=== PATIENT | female | born 1950 | race Caucasian/White ===

== ENCOUNTER 2018-03-18 18:11 | Outpatient (REF) | payer MEDICARE, OTHER, SELFPAY ==
[2018-03-18 20:02] LABS: COMMENT (LAB VIEW ONLY) 99.71 mg/dL; Microalb ug/mg Crea 18.3 ug/mg Cr
== END 2018-03-18 18:31 ==
LOC: NCHCN 18:11
PROVIDERS: PCP Nurse Practitioner; Visit Provider Nurse Practitioner
DX: E11.9 Type 2 diabetes mellitus without complications (principal)
CPT/HCPCS: 82043; 82570

== ENCOUNTER 2018-09-25 12:57 | Outpatient (REF) | payer MEDICARE, OTHER, SELFPAY ==
[2018-09-25 19:22] LABS: ALT 35 U/L (12-78); AST 26 U/L (15-37); Albumin 3.8 g/dL (3.4-5.0); Alkaline Phosphatase 90 U/L (46-116); Anion Gap 10.1 mmol/L (3-11); BUN 14 mg/dL (7-18); Bilirubin, Total 0.3 mg/dL (0.2-1.0); CO2 27.9 mmol/L (21.0-32.0); CREATININE 0.73 mg/dL (0.55-1.02); Calcium 9.2 mg/dL (8.5-10.1); Chloride 102 mmol/L (98-107); Cholesterol 184 mg/dL (50-200); Glucose 167 mg/dL (70-100); HDL Cholesterol 64 mg/dL (40-60); LDL CHOLESTEROL 102 mg/dL (<100); Potassium 3.9 mmol/L (3.5-5.1); Sodium 140 mmol/L (136-145); TSH (W/Ref FT4) 2.12 uIU/mL (0.358-3.74); Total Protein 7.1 g/dL (6.4-8.2); Triglyceride 110 mg/dL (30-150)
== END 2018-09-25 13:17 ==
LOC: NCHCN 12:57
PROVIDERS: PCP Nurse Practitioner; Visit Provider Nurse Practitioner
DX: E11.9 Type 2 diabetes mellitus without complications (principal); E03.9 Hypothyroidism, unspecified; E78.00 Pure hypercholesterolemia, unspecified
CPT/HCPCS: 80053; 80061; 83721; 84443

== ENCOUNTER 2019-06-16 00:43 | Outpatient (CLI) | payer MEDICARE, OTHER, SELFPAY ==
--- NOTE | 2019-06-16 15:20 | DI.MAMMO_ITS ---
EXAM: MAMMO SCREENING CLINICAL HISTORY: SCREENING Z12.39. TECHNIQUE: Full field digital CC and MLO mammographic images were obtained with 3D tomosynthesis and utilizing computer aided detection (CAD). COMPARISON: . 2009 to 2016 FINDINGS: Breast density: Breast Density - Category B - Scattered areas of fibroglandular density Masses/Architectural Distortion: None seen. Microcalcifications: No suspicious pleomorphic-type calcifications are seen. Skin Thickening/Nipple Retraction: None. Axilla: Unremarkable. IMPRESSION: 1. BI-RADS category 1, negative. No significant interval change with no specific features of maligna ncy noted. 2. Unless there is more urgent need, screening mammography is recommended, as per [place] [employer] guidelines. A negative radiographic report should not delay biopsy if a dominant or clinically suspicious mass is present. Up to ten percent of cancers are not identified on mammography. A negative report may reinforce clinical impression. Adenosis and dense breasts may obscure an underlying neoplasm. False positive reports average 6 to 10%. Patient will receive a letter notifying them of these results.
== END 2019-06-16 01:03 ==
PROVIDERS: PCP Nurse Practitioner; Visit Provider Nurse Practitioner
DX: Z12.31 Encounter for screening mammogram for malignant neoplasm of breast (principal)
CPT/HCPCS: 77063; 77067

== ENCOUNTER 2019-09-29 07:52 | Outpatient (REF) | payer MEDICARE, OTHER, SELFPAY ==
[2019-09-29 16:05] LABS: Hemoglobin A1C 7.1 % (3.8-5.6)
[2019-09-29 16:07] LABS: ALT 41 U/L (14-59); AST 23 U/L (15-37); Alkaline Phosphatase 98 U/L (46-116); Anion Gap 7.2 mmol/L (3-11); BUN 16 mg/dL (7-18); Bilirubin, Total 0.4 mg/dL (0.2-1.0); CO2 30.8 mmol/L (21.0-32.0); CREATININE 0.69 mg/dL (0.55-1.02); Calcium 9.1 mg/dL (8.5-10.1); Chloride 103 mmol/L (98-107); Glucose 160 mg/dL (74-106); Potassium 4.1 mmol/L (3.5-5.1); Sodium 141 mmol/L (136-145); TSH (W/Ref FT4) 3.77 uIU/mL (0.36-3.74); Total Protein 7.4 g/dL (6.4-8.2)
[2019-09-29 16:22] LABS: Calculated LDL 108 mg/dL (<100); Cholesterol 193 mg/dL (<200); HDL Cholesterol 66 mg/dL (40-60); Triglyceride 98 mg/dL (<150)
[2019-09-29 16:39] LABS: FREE T4 1.12 ng/dL (0.76-1.46)
== END 2019-09-29 08:12 ==
LOC: NCHCN 07:52
PROVIDERS: PCP Nurse Practitioner; Visit Provider Nurse Practitioner
DX: E78.00 Pure hypercholesterolemia, unspecified (principal); E11.9 Type 2 diabetes mellitus without complications; E03.9 Hypothyroidism, unspecified
CPT/HCPCS: 80053; 80061; 83036; 84439; 84443

== ENCOUNTER 2020-10-11 16:37 | Outpatient (REF) | payer MEDICARE, OTHER, SELFPAY ==
[2020-10-11 19:00] LABS: ALT 43 U/L (14-59); AST 23 U/L (15-37); Albumin 3.8 g/dL (3.4-5.0); Alkaline Phosphatase 133 U/L (46-116); Anion Gap 8.6 mmol/L (3-11); BUN 25 mg/dL (7-18); Bilirubin, Total 0.3 mg/dL (0.2-1.0); CO2 29.4 mmol/L (21.0-32.0); CREATININE 0.9 mg/dL (0.55-1.02); Calcium 8.8 mg/dL (8.5-10.1); Calculated LDL 98 mg/dL (<100); Chloride 106 mmol/L (98-107); Cholesterol 173 mg/dL (<200); Glucose 161 mg/dL (74-106); HDL Cholesterol 52 mg/dL (40-60); Potassium 4.1 mmol/L (3.5-5.1); Sodium 144 mmol/L (136-145); TSH (W/Ref FT4) 3.12 uIU/mL (0.36-3.74); Total Protein 6.9 g/dL (6.4-8.2); Triglyceride 115 mg/dL (<150)
== END 2020-10-11 16:38 | disposition home or self-care (01) ==
LOC: NCHCN 16:37
PROVIDERS: PCP Nurse Practitioner; Visit Provider Nurse Practitioner
DX: E03.9 Hypothyroidism, unspecified (principal); E78.00 Pure hypercholesterolemia, unspecified
CPT/HCPCS: 80053; 80061; 84443

== ENCOUNTER 2020-11-11 12:17 | Outpatient (REF) | payer MEDICARE, OTHER, SELFPAY ==
--- NOTE | 2020-11-11 14:00 | SKI_PTH ---
PATIENT: Susie Hernadez LOC: [facility] U#:[id number] AGE/SX: 70/F ROOM: RE11/11/[address]: Sincere Marks : 1950 BED: DIS: 11/11/2020 SPEC #: [id number] RECD: 11/14/20 12:52 STATUS: JHONNY REQ #: [id number] CLINT: 11/11/20 14:[address]: Sincere Marks DEPT: Surgical Specimen RECD BY: Betty Morillo ENTERED: 11/14/20 12:52 SP TYPE: SHANNAN GONZALEZ DR: Lucila Lee Tissues: 1 - SKIN BIOPSY(SHAVE/PUNCH) Procedures: SKIN LEVEL 4 Comments: [id number]
== END 2020-11-11 12:18 | disposition home or self-care (01) ==
LOC: NCHCN 12:17
PROVIDERS: PCP Nurse Practitioner; Visit Provider Physician Assistant
DX: L30.8 Other specified dermatitis; L81.8 Other specified disorders of pigmentation
CPT/HCPCS: 88305

== ENCOUNTER 2021-05-22 00:46 | Outpatient (CLI) | payer MEDICARE, OTHER, SELFPAY ==
--- NOTE | 2021-05-22 | DI.MAMMO_ITS ---
Exam(s) MAMMO SCREENING EXAM: MAMMO SCREENING CLINICAL HISTORY: SCREENING, Z12.39 TECHNIQUE: Mammograms were interpreted according to the usual protocol including computer analysis w [employer] CAD system, tomosynthesis and C-view imaging. COMPARISON: 2012 through 2019 FINDINGS: The breasts are composed of scattered fibroglandular densities, Breast Density category B. No suspicious masses or suspicious microcalcifications are seen. No skin thickening or abnormal axillary lymph nodes are seen. There has been no significant change from prior exams. IMPRESSION: BI-RADS Category 1, Negative mammogram Yearly screening mammography is recommended. Breast Density - Category B, scattered fibroglandular densities. A negative radiographic report should not delay biopsy if a dominant or clinically suspicious mass is present. Up to ten percent of cancers are not identified on mammography. A negative report may reinforce clinical impression. Adenosis and dense breasts may obscure an underlying neoplasm. False positive reports average 6 to 10%. Patient will receive a letter notifying them of these results.
== END 2021-05-22 01:06 ==
PROVIDERS: PCP Nurse Practitioner; Visit Provider Nurse Practitioner
DX: Z12.31 Encounter for screening mammogram for malignant neoplasm of breast (principal)
CPT/HCPCS: 77063; 77067

== ENCOUNTER 2021-10-09 19:50 | Emergency (ER) | payer MEDICARE, OTHER, SELFPAY ==
[2021-10-09] VITALS (33 sets, daily range): BP systolic 118–162; BP diastolic 62–94; PULSE 54–69; RESP 8–25; TEMP 37–37.1; O2SAT 95–100
--- NOTE | 2021-10-09 20:00 | RT.EKG_ITS ---
APPROVED REPORT Exam: Resting ECG Reason for Exam: vomiting Patient Location: E HR:56 bpm ECG Measurements Heart Rate 56 AXIS HI 156 P 60 QRSd 93 QRS 14 QT 440 T 64 QTc 427 Conclusion Sinus bradycardia...rate< 60 Physician: no stemi, stable, no significant st elevation or depression
--- NOTE | 2021-10-09 20:00 | DI.CT_ITS ---
Exam(s) CT ABDOMEN PELVIS WO EXAM: CT ABDOMEN PELVIS WO INDICATION: vomiting, epigastric discomfort. COMPARISON: No exams were available for comparison TECHNIQUE: FINDINGS: CT examination of the abdomen and pelvis was performed without contrast administration. Images obtained through the lung bases are unremarkable. There is apparent wall thickening and/or edema of the gastric antrum, please correlate regarding poss ible inflammatory process, endoscopy may be considered if clinically indicated. Malignancy not exclu ded on the basis of this examination. The liver is unremarkable in appearance. Gallbladder and bile ducts are CT normal. Pancreas appears normal. Spleen is unremarkable in appearance. Adrenals appear normal. The kidneys are unremarkable with no evidence of hydronephrosis, nephrolithiasis, or renal mass.. Ur inary bladder unremarkable. Abdominal aorta is of normal diameter and no major vascular abnormality is seen. No abdominal wall hernia. No abdominal or pelvic adenopathy. [employer] structures appear intact. Appendix is normal. No evidence of diverticulitis or bowel obstruction. IMPRESSION: Findings of apparent gastric antral wall thickening and/or edema. Findings may represent inflammator y or neoplastic process, correlation with endoscopy suggested if clinically appropriate.. RADIATION DOSE DELIVERED: 482.03mGy.cm Total DLP 482.03mGy.cm Total DLP !Error CTDIvol RADIATION OPTIMIZATION: All CT scans at this facility use at least one of these dose optimization te chniques: automated exposure control; mA and/or kV adjustment per patient size (includes targeted exa ms where dose is matched to clinical indication); or iterative reconstruction.
--- NOTE | 2021-10-09 20:03 | W.ED.GENAD ---
Discharge Plan Disposition Patient Disposition: HOME Condition: Good Discharge Details Clinical Impression: Gastritis, Gastric wall thickening Primary Care Provider: Lucila Lee ED Provider: Roderick Juan Home Meds and New Rx's Prescriptions: New sucralfate [Carafate] 1 gram tablet 1 g PO BID Qty: 60 0RF pantoprazole [Protonix] 40 mg tablet,delayed release (DR/EC) 40 mg PO DAILY Qty: 60 0RF famotidine 40 mg tablet 40 mg PO DAILY Qty: 60 0RF Continued multivitamin Tablet 1 tab PO DAILY atorvastatin 10 mg Tablet 10 mg PO DAILY levothyroxine 25 mcg Tablet 25 mcg PO DAILY loratadine 10 mg Tablet 10 mg PO DAILY PRN Discharge Instructions Instructions: Gastritis (ED) Additional Instructions: At this time your symptoms are consistent with gastritis. This is irritation of your stomach. Please stick with a bland diet of rice, bananas, oatmeal, and avoid any spicy foods, tomato-based foods, citrus foods, or greasy foods. Please stick with a bland diet for the next 4 to 7 days. Please take the antiacid medications that have been given to you. They have been sent to your pharmacy on file. You have been given a small bottle of Zofran, please take this as needed for nausea. As we discussed together there is a small amount of thickening in your stomach which is most likely due to the gastric irritation, but may also be due to to a cancer or tumor. Please follow-up closely with your new primary care provider for discussion and scheduling of an EGD to evaluate that area further. If you notice any worsening of your symptoms, or any new symptoms such as vomiting, diarrhea, fever, chills, shortness of breath, chest pain, numbness, weakness, or fainting , please return immediately to the emergency department for reevaluation. Please follow up with your primary care provider as soon as possible for reassessment and reevaluation. As always, it was a pleasure participating in your medical care today. Referrals: Lucila Lee [Primary Care Provider] - Medical Decision Making This is a very pleasant 71-year-old female with a past medical history of being prediabetic, with no previous abdominal surgeries who presents today for evaluation of vomiting and epigastric pain. Patient states that this morning she began vomiting, she has subsequently vomited 6-7 times. She tried taking some Pepto-Bismol but this did not improve her symptoms at all. She describes the pain as achy and a feeling of unease in the epigastric region. No chest pain, chest tightness, chest heaviness or shortness of breath. She denies any hematemesis or diarrhea. She denies any urinary complaints. She did go to the urgent care earlier and was recommended to come to the ER for further assessment. Patient has no other modifying factors. Physical exam demonstrates dry mucous membranes, mild achiness in the epigastric area, no pain to McBurney's point. Negative Saini sign. No evidence of an acute surgical abdomen. Because of the patient's age, risk factors, prediabetes, I do feel that further evaluation is indicated. We will rehydrate, get a CT scan of the abdomen, evaluate for less likely cardiac etiology, monitor closely and reassess. Will give Protonix, Zofran, and GI cocktail. 10:[address] scan results have returned, there is evidence of thickening of the gastric antrum, she is most likely secondary to gastritis, however with the patient's longstanding history of GERD, further endoscopy is indicated on a nonemergent basis. I discussed this with the patient she will follow-up with her PCP in regards to scheduling this. On reassessment patient feels much better. She has been able to tolerate p.o. She continues to demonstrate a nonsurgical abdomen. Laboratory work-up is unremarkable, no white count bandemia or left shift. Electrolytes are stable, renal function is good. Diagnosis gastric irritation/gastric ulcer. Troponin is normal, EKG is benign. Will recommend PPI and H2 peggy for home use as well as Carafate. We will send prescriptions. Discussed red flags for which to return. I have extensively reviewed the treatment plan and discharge instructions with the patient. I have addressed all patient concerns at this time. The patient was made aware of what symptoms to monitor for that would warrant a return to the emergency department. Discussed the plan with the patient, they demonstrate verbal understanding and agreement with our assessment and plan at this time. The documentation in this chart was dictated using VTM dictation software. Please excuse any dictation errors. FINDINGS: Lungs: Lung bases are clear. Liver: Liver is not enlarged. Unremarkable unenhanced appearance of the liver. Gallbladder and bile ducts: No significant pericholecystic inflammatory stranding. No calcified stones. No ductal dilation. Pancreas: Unremarkable unhanced appearance of the pancreas. No ductal dilation. Spleen: Unremarkable unenhanced appearance of the spleen. No splenomegaly. Adrenal glands: Nonspecific, symmetric mild adrenal thickening without discrete nodule or mass. Kidneys and ureters: No renal calcification. There are symmetric extrarenal pelvises. No rafael hydronephrosis. Ureters are symmetric with essentially normal course and caliber. Stomach and bowel: Proximal stomach mildly distended by ingested material. There is focal circumferential mural thickening of the gastric antrum (series 2, image 29; coronal image 23). Small bowel is normal in course and caliber without focal bowel wall thickening. Ingested oral contrast noted within the colon, no bowel obstruction. No focal colonic mural thickening. There is mild colonic stool burden. Appendix: No evidence of acute appendicitis. Intraperitoneal space: No concerning free fluid in the abdomen or pelvis. No free air Vasculature: There are mild scattered atherosclerotic calcifications of the abdominal aorta and its major branches, no abdominal aortic aneurysm. Abdominal aorta is tortuous in course. Lymph nodes: No pathologically enlarged lymph nodes. Urinary bladder: Unremarkable as visualized. Reproductive: Unremarkable as visualized. Bones/joints: Varying degrees of multilevel degenerative disk and facet changes of the spine are present. No acute fracture. Soft tissues: Asymmetric induration of the soft tissues within the right labia/perineum, incompletely evaluated on this study. IMPRESSION: 1. Focal circumferential mural thickening of the gastric antrum. Correlate with history/symptoms for acute gastritis. As underlying malignancy is not excluded, correlation with endoscopy as clinically indicated. 2. Asymmetric induration of the soft tissues within the right labia/perineum, incompletely evaluated on this study. Correlate with physical exam. 3. Additional nonacute findings as discussed. Thank you for allowing us to participate in the care of your patient. Dictated and Authenticated by: Mino Queen MD 10/09/2021 9:25 PM Eastern Time ([place] & [place]) HPI General Date/Time Provider Initiated Documentation: 10/09/21 19:52. HPI Narrative: This is a very pleasant 71-year-old female with a past medical history of being prediabetic, with no previous abdominal surgeries who presents today for evaluation of vomiting and epigastric pain. Patient states that this morning she began vomiting, she has subsequently vomited 6-7 times. She tried taking some Pepto-Bismol but this did not improve her symptoms at all. She describes the pain as achy and a feeling of unease in the epigastric region. No chest pain, chest tightness, chest heaviness or shortness of breath. She denies any hematemesis or diarrhea. She denies any urinary complaints. She did go to the urgent care earlier and was recommended to come to the ER for further assessment. Patient has no other modifying factors. Related Data Home Medications Medication Instructions Recorded Confirmed atorvastatin 10 mg tablet 10 mg PO DAILY 10/09/21 10/09/21 famotidine 40 mg tablet 40 mg PO DAILY #60 tabs 10/09/21 levothyroxine 25 mcg tablet 25 mcg PO DAILY 10/09/21 10/09/21 loratadine 10 mg tablet 10 mg PO DAILY PRN 10/09/21 10/09/21 multivitamin 1 tab PO DAILY 10/09/21 10/09/21 pantoprazole 40 mg tablet,delayed 40 mg PO DAILY #60 tabs 10/09/21 release (Protonix) sucralfate 1 gram tablet (Carafate) 1 g PO BID #60 tabs 10/09/21 Previous Rx's Medication Instructions Recorded famotidine 40 mg tablet 40 mg PO DAILY #60 tabs 10/09/21 pantoprazole 40 mg tablet,delayed 40 mg PO DAILY #60 tabs 10/09/21 release (Protonix) sucralfate 1 gram tablet (Carafate) 1 g PO BID #60 tabs 10/09/21 Allergies Allergy/AdvReac Type Severity Reaction Status Date / Time No Known Allergies Allergy Unverified 10/09/21 20:04 General Stated Complaint: Nausea/Vomit/Diar KRISTIN: 3 Review of Systems All systems reviewed & are unremarkable except as noted in HPI and below PFSH All Active Problems (Updated 10/09/21 @ 22:08 by Roderick Juan DO) Gastritis (Acute) Gastric wall thickening (Acute) Social History Smoking/Tobacco Use Status: Never Smoking risk assessment performed?: Yes Alcohol Intake: never Drug use: Never Substance use type: does not use Exam Narrative Exam Narrative: 1.Const: Well-nourished, Well-developed, appearing stated age 2.Eyes: PERRL, no conjunctival injection, and symmetrical lids. 3.ENT: Atraumatic external nose and ears. Dry MM. Neck: Symmetric, trachea midline, No thyromegaly. 4.CVS: +S1/S2, No murmurs or gallops. Peripheral pulses 2+ and equal in all extremities. Brisk capillary refill in all extremities. 5.RESP: Unlabored respiratory effort. Clear to auscultation bilaterally. No wheezes rales or rhonchi 6.GI: Soft, nondistended, no guarding or rebound. Mild achiness in the epigastric region on palpation. No pain at McBurney's point. Negative Saini sign. 7.MSK: Normocephalic/Atraumatic, Extremities w/o deformity or ttp No cyanosis or clubbing, Normal movement of all extremities 8.Skin: Warm, Dry. No rashes or lesions. 9.Neuro: stave planer tender II-XII grossly intact. Sensation grossly intact, no focal neurologic deficits. 10.Psych: (AAO) x3. Appropriate mood and affect Course Vital Signs Vital signs: Vital Signs Temperature 37.1 C 10/09/21 19:55 Pulse 56 L 10/09/21 19:55 Respiratory Rate 14 10/09/21 19:55 Blood Pressure 162/81 H 10/09/21 19:55 Pulse Oximetry 100 10/09/21 19:55 Temperature 37.1 C 10/09/21 19:55 Temperature Source Skin 10/09/21 19:55 Pulse 56 L 10/09/21 19:55 Respiratory Rate 14 10/09/21 19:55 Respiratory Effort Non-Labored 10/09/21 19:58 Blood Pressure 162/81 H 10/09/21 19:55 Blood Pressure Position Sitting 10/09/21 19:55 Pulse Oximetry 100 10/09/21 19:55 Oxygen Delivery Method Room Air 10/09/21 19:55 Oxygen Flow Rate 0 10/09/21 19:55
[2021-10-09] MEDS: Famotidine 20 MG/2 ML VIAL IVP (20:09)
[2021-10-09] MEDS: Ondansetron 4 MG/2 ML VIAL IVP (20:09)
[2021-10-09] MEDS: Normal Saline 100 ML 400 ML (20:10)
[2021-10-09] MEDS: Normal Saline 1,000 ML 1000 ML IV (20:11)
[2021-10-09 20:22] LABS: Abs Immature Grans 0.01 10^3/uL (0.0-0.06); Absolute Basophil Count 0.07 10^3/uL (0.0-0.2); Absolute Eosinophil Count 0.96 10^3/uL (0.0-0.7); Absolute Lymphocyte Count 1.94 10^3/uL (1.2-3.4); Absolute Neutrophil Count 4.29 10^3/uL (1.2-6.7); Basophils % 0.9; Eosinophils % 12.2; HGB 13.6 g/dL (11.2-15.7); Immature Grans % 0.1; Lymphocytes % 24.7; MCH 30.4 pg (27.0-33.0); MCV 90 fL (80-95); MPV 9.8 fL (8.0-11.0); Monocytes % 7.6; Neutrophils % 54.5; Platelet Count 276 10^3/uL (130-400); RBC 4.47 10^6/uL (3.93-5.22); RDW 12.4 % (11.7-14.6); RDW-SD 41.1 fL; WBC 7.87 10^3/uL (4.4-10.8)
[2021-10-09 20:34] LABS: ALT 39 U/L (14-59); AST 22 U/L (15-37); Albumin 3.7 g/dL (3.4-5.0); Alkaline Phosphatase 120 U/L (46-116); Anion Gap 9.2 mmol/L (3-11); BUN 19 mg/dL (7-18); Bilirubin, Total 0.3 mg/dL (0.2-1.0); CO2 26.8 mmol/L (21.0-32.0); CREATININE 0.7 mg/dL (0.55-1.02); Calcium 9.2 mg/dL (8.5-10.1); Chloride 104 mmol/L (98-107); Glucose 169 mg/dL (74-106); Lipase 176 U/L (73-393); Potassium 3.8 mmol/L (3.5-5.1); Sodium 140 mmol/L (136-145); Total Protein 7.2 g/dL (6.4-8.2); Troponin I < 50 ng/L (<or=60)
--- NOTE | 2021-10-09 21:25 | DI.VRAD_ITS ---
PROCEDURE INFORMATION: Exam: CT Abdomen And Pelvis Without Contrast Exam date and time: 10/09/2021 8:35 PM Age: 71 years old Clinical indication: Abdominal pain; Patient HX: Vomiting, epigastric discomfort TECHNIQUE: Imaging protocol: Computed tomography of the abdomen and pelvis without contrast. COMPARISON: No relevant prior studies available. FINDINGS: Lungs: Lung bases are clear. Liver: Liver is not enlarged. Unremarkable unenhanced appearance of the liver. Gallbladder and bile ducts: No significant pericholecystic inflammatory stranding. No calcified stones. No ductal dilation. Pancreas: Unremarkable unhanced appearance of the pancreas. No ductal dilation. Spleen: Unremarkable unenhanced appearance of the spleen. No splenomegaly. Adrenal glands: Nonspecific, symmetric mild adrenal thickening without discrete nodule or mass. Kidneys and ureters: No renal calcification. There are symmetric extrarenal pelvises. No rafael hydronephrosis. Ureters are symmetric with essentially normal course and caliber. Stomach and bowel: Proximal stomach mildly distended by ingested material. There is focal circumferential mural thickening of the gastric antrum (series 2, image 29; coronal image 23). Small bowel is normal in course and caliber without focal bowel wall thickening. Ingested oral contrast noted within the colon, no bowel obstruction. No focal colonic mural thickening. There is mild colonic stool burden. Appendix: No evidence of acute appendicitis. Intraperitoneal space: No concerning free fluid in the abdomen or pelvis. No free air. Vasculature: There are mild scattered atherosclerotic calcifications of the abdominal aorta and its major branches, no abdominal aortic aneurysm. Abdominal aorta is tortuous in course. Lymph nodes: No pathologically enlarged lymph nodes. Urinary bladder: Unremarkable as visualized. Reproductive: Unremarkable as visualized. Bones/joints: Varying degrees of multilevel degenerative disk and facet changes of the spine are present. No acute fracture. Soft tissues: Asymmetric induration of the soft tissues within the right labia/perineum, incompletely evaluated on this study. IMPRESSION: 1. Focal circumferential mural thickening of the gastric antrum. Correlate with history/symptoms for acute gastritis. As underlying malignancy is not excluded, correlation with endoscopy as clinically indicated. 2. Asymmetric induration of the soft tissues within the right labia/perineum, incompletely evaluated on this study. Correlate with physical exam. 3. Additional nonacute findings as discussed. Dictated and Authenticated by: Mino Queen MD. Ordering:ELAN Vaughn MD
[2021-10-09 21:44] LABS: Bilirubin Negative (Negative); Blood Trace-intact (Negative); Clarity Sl Cloudy (Clear); Glucose Negative (Negative); Ketones Negative (Negative); Leukocyte Esterase Negative (Negative); Nitrite Negative (Negative); Specific Gravity 1.015 (1.005-1.025); Urobilinogen 0.2 EU/dL (Up TO 0.2)
[2021-10-09 21:53] LABS: Bacteria Negative HPF (Negative); C & S Indicated? No; Crystals Many Amorphous HPF (Negative); Epithelial Cells Negative HPF (Negative); Mucus Negative (Negative); RBC 0-2 HPF (0-2); WBC Negative HPF (0-5)
[2021-10-09] MEDS: Sucralfate 1 GM TAB 2 GM PO (22:21)
[2021-10-09] MEDS: Ondansetron O.D.T. 4 MG TABEF, 3 TABS/BTL PO (22:21)
== END 2021-10-09 22:25 | disposition home or self-care (01) ==
PROVIDERS: Emergency Provider Student in an Organized Health Care Education/Training Program; PCP Nurse Practitioner
DX: K29.00 Acute gastritis without bleeding (principal); R10.13 Epigastric pain; R11.10 Vomiting, unspecified; K31.89 Other diseases of stomach and duodenum
CPT/HCPCS: 80053; 83690; 93005; 96361; 96374; 96375; 99284; 74176; 81003; 81015; 84484; 85025; 93010; J2405

== ENCOUNTER → 2021-10-19 09:24 | Outpatient (BNVA) | payer MEDICARE, OTHER, SELFPAY | PROVIDERS: PCP Nurse Practitioner; Referring Provider Nurse Practitioner; Visit Provider Physical Therapy Assistant | DX: K21.9 Gastro-esophageal reflux disease without esophagitis (principal) | CPT/HCPCS: 99214 ==

== ENCOUNTER 2021-10-26 13:39 | Outpatient (REF) | payer MEDICARE, OTHER, SELFPAY ==
[2021-10-26 15:52] LABS: Microalb ug/mg Crea 15.6 ug/mg Cr
[2021-10-26 19:12] LABS: TSH (W/Ref FT4) 1.34 uIU/mL (0.36-3.74)
== END 2021-10-26 13:40 | disposition home or self-care (01) ==
LOC: NCHCN 13:39
PROVIDERS: PCP Nurse Practitioner; Visit Provider Nurse Practitioner Family
DX: E03.9 Hypothyroidism, unspecified (principal); R10.9 Unspecified abdominal pain; E78.00 Pure hypercholesterolemia, unspecified; E11.9 Type 2 diabetes mellitus without complications; K21.9 Gastro-esophageal reflux disease without esophagitis
CPT/HCPCS: 82043; 82570; 84443

== ENCOUNTER 2021-11-03 01:10 | Outpatient (CLI) | payer MEDICARE, OTHER, SELFPAY ==
[2021-11-03 12:49] LABS: Source Nasal/Nares
[2021-11-03 15:42] LABS: COVID-19 PCR Negative (Negative)
== END 2021-11-03 01:11 | disposition home or self-care (01) ==
LOC: LBO 01:11
PROVIDERS: PCP Nurse Practitioner; Visit Provider Surgery
DX: Z20.822 Contact with and (suspected) exposure to COVID-19 (principal); Z01.818 Encounter for other preprocedural examination
CPT/HCPCS: 87635; U0005

== ENCOUNTER 2021-11-06 06:18 | Day surgery (SDC) | payer MEDICARE, OTHER, SELFPAY ==
[2021-11-06 06:35] VITALS: BP 139/77; PULSE 64; RESP 16; TEMP 36.6; O2SAT 99
--- NOTE | 2021-11-06 06:38 | W.PM.ENDDOP ---
Date of service: 11/06/21 Time of Service: 07:39 Endoscopy Report DATE OF PROCEDURE: 11/06/21 PRE-OP DIAGNOSIS: GERD POST-OP DIAGNOSIS: other (Gastric ulcer, gastritis) PROCEDURE: EGD with biopsies SURGEON: Felecia Ceballos ANESTHESIA TYPE: General:No Airway ESTIMATED BLOOD LOSS: 3 PATHOLOGY: other (Gastric ulcer bx, antrum bx, GE junction bx) COMPLICATIONS: None DISPOSITION: same day INDICATIONS: 71 y/o female with history of GERD presents for further follow up after being seen in the ER on 10/09. CT scan at that time showed gastritis and gastric wall thickening. At that time she was having abdominal pain and nausea. This has since resolved since starting Famotidine, pantoprazole and carfate. However, she continues to have break through heart burn most often at night. When this occurs she also takes pepto bismuth. She denies any changes in bowel habits including bloody or black tarry stools, abdominal pain, diarrhea or constipation. She denies constitutional symptoms. PROCEDURE START TIME: :30 PROCEDURE END TIME: :34 FINDINGS: Large ulcer just proximal to the pylorus. mild gastritis PROCEDURE DESCRIPTION: After informed consent was obtained the patient was take to the procedure room and placed in a supine position. Monitors were applied and a time out was done. The patients name, date of , procedure type, allergies to medications and metal in their body was reviewed. A bite block was placed and the patient was sedated. Once sedated and comfortable the gastroscope was advanced through the oropharynx which was grossly normal into the esophagus. The esophagus was normal. The scope was advanced into the stomach and through the pylorus into the 3rd portion of the duodenum. The duodenum was noted to be normal. The scope was retracted back into the stomach. There was an ulcer just proximal to the pylorus and mild inflammation of the antrum. Biopsies were done of the ulcer and the antrum to rule out H. pylori and malignancy. The scope was retroflexed. The cardia and fundus were noted to be normal. There was no hiatal hernia noted. The scope was retracted back into the esophagus and biopsies were done of the GE junction to rule out Brown's. The Z line was regular. The GE junction was at 35 cm. The scope was removed and the patient was woken up and taken back to [facility] in stable condition. Follow up: 2 weeks
--- NOTE | 2021-11-06 06:41 | W.PM.DSUDISC ---
Discharge Plan Disposition Patient Disposition: HOME Condition: Good Discharge Details Reason For Visit: GERD Attending Provider: Felecia Ceballos Primary Care Provider: Lucila Lee Home Meds and New Rx's Prescriptions: New pantoprazole 40 mg tablet,delayed release (DR/EC) 40 mg PO BID Qty: 60 2RF sucralfate [Carafate] 1 gram tablet 1 g PO QID 30 Days Qty: 120 0RF Rx Instructions: Take 30 minutes before meals and at bedtime Continued Fish Oil 340-1,000 mg capsule 1 cap PO DAILY multivitamin Tablet 1 tab PO DAILY atorvastatin 10 mg Tablet 10 mg PO DAILY levothyroxine 25 mcg Tablet 25 mcg PO DAILY loratadine 10 mg Tablet 10 mg PO DAILY PRN psyllium Packet 1 packet PO QDAY Rx Instructions: mix into at least 8 oz of water or juice before administering Discontinued sucralfate [Carafate] 1 gram tablet 1 g PO BID Qty: 60 0RF pantoprazole [Protonix] 40 mg tablet,delayed release (DR/EC) 40 mg PO DAILY Qty: 60 0RF famotidine 40 mg tablet 40 mg PO DAILY Qty: 60 0RF Discharge Instructions Instructions: Diet for Stomach Ulcers and Gastritis (ED), Gastritis (DC), Peptic Ulcer (DC) Additional Instructions: Findings: inflammation of the stomach and ulcer Follow up: 2 weeks Medications: Please increase Protonix to 2 x a day Please increase Carafate to 4 x a day Stop Famotidine Please call if you develop: fevers >101.5 Nausea or Vomiting Abdominal pain that is not transient Rectal bleeding that is more then a tbsp A hard abdomen and inability to pass gas DAY SURGERY UNIT POST ENDOSCOPY INSTRUCTIONS Instructions for everyone who is given Anesthesia: For your safety, please do the following for the next 24 Hours: a. Do not drive or operate dangerous equipment b. Do not drink alcohol beverages or use any recreational drugs for the first 24 hours or while taking pain medications. The medications in your body may have a reaction that can be dangerous. c. Do not make any important decisions or sign any important papers 1. Generally there are no restrictions on your activity after a day or so has gone by, but you may feel a bit fatigued for a few days. 2. After you arrive home you may have a light meal and return to a normal diet as you can tolerate it without feeling sick to your stomach. 3. After surgery, you may feel pain or discomfort. This should be only transient, but if it persists please contact your doctor. 4. If there are any questions regarding the findings of your procedure, please feel free to contact your doctor. 6. If you are unable to contact your doctor with a problem, contact the hospital at [phone]. 7. Continue all your regular medications unless directed otherwise. I understand the above instructions and have no questions. Signature of Patient or Responsible Adult Escort Date/Time Name of Responsible Adult Escort Signature of Nurse Date/Time Referrals: Felecia Ceballos MD [ [facility] STAFF PHYSICIAN] - 11/21/21 9:30 am Activity:: Activity as Tolerated Diet:: low acid Discharge Orders Discharge Orders: Discharge Order (Routine); Ordered 11/06/21 Ordered By: Felecia Ceballos
[2021-11-06] MEDS: Lactated Ringers 1,000 ML 80 ML IV (06:57)
--- NOTE | 2021-11-06 06:57 | W.ANESPRE ---
General Info Date of Service Date Performed: 11/06/21 Height: 5 ft Weight: 44.8 kg Body Mass Index (BMI): 19.3 Surgical Procedure: Operation Date: 11/06/21 07:35 Proposed Procedure Side Surgeon p Gastroscopy w/Biopsies Felecia Ceballos MD Meds Allergies and Home Medications Allergies Allergy/AdvReac Type Severity Reaction Status Date / Time omeprazole [From Prilosec] Allergy Severe Swelling/Ed Verified 11/06/21 06:29 marielena Home Medication Medication Instructions Recorded atorvastatin 10 mg tablet 10 mg PO DAILY 10/09/21 famotidine 40 mg tablet 40 mg PO DAILY #60 tabs 10/09/21 levothyroxine 25 mcg tablet 25 mcg PO DAILY 10/09/21 loratadine 10 mg tablet 10 mg PO DAILY PRN 10/09/21 multivitamin 1 tab PO DAILY 10/09/21 pantoprazole 40 mg tablet,delayed 40 mg PO DAILY #60 tabs 10/09/21 release (Protonix) sucralfate 1 gram tablet (Carafate) 1 g PO BID #60 tabs 10/09/21 omega-3 fatty acids-fish oil 340 1 cap PO DAILY 10/17/21 mg-1,000 mg capsule (Fish Oil) psyllium 1 packet PO QDAY 11/06/21 Current Visit Medications: Current Medications Generic Name Dose Route Start Last Admin Trade Name Freq PRN Reason Stop Dose Admin Hyoscyamine Sulfate 0.125 mg 11/06/21 06:42 Hyoscyamine 0.125 Mg Sl/Oral/Chew SL DIRECTED PRN Ringer's Solution 1,000 mls @ 80 mls/hr 11/06/21 06:00 IV 12/03/21 23:59 INFUSION [facility] IV Miscellaneous Supplies 1 each 11/06/21 06:00 Iv Access IV 12/03/21 23:59 DIRECTED SONYA Ondansetron HCl 4 mg 11/06/21 06:42 Ondansetron 4 Mg/2 Ml Vial IVP Q4H PRN PRN Nausea / Vomiting Sodium Chloride 0 ml 11/06/21 06:00 Normal Saline Flush 10 Ml Syr IV 12/03/21 23:59 PRN PRN Sodium Chloride 0 ml 11/06/21 06:00 Normal Saline 10 Ml Vial IJ 12/03/21 23:59 DIRECTED PRN Sterile Water 0 ml 11/06/21 06:00 Water,Injection,Sterile 10 Ml Vial IJ 12/03/21 23:59 DIRECTED PRN PFSH Active Problems Active Problems: Problem Status Onset Code Gastritis K29.70 Gastric wall thickening K31.89 Abdominal pain, acute R10.9 GERD (gastroesophageal reflux disease) K21.9 Medical History Medical History Diabetes type 2, controlled diet controlled per pt. Hypercholesterolemia Hypothyroid Morphea Tobacco Smoking/Tobacco Use Status: Never Alcohol Alcohol Intake: never Substance Use Substance use: Never Substance use type: does not use Vital Signs and Lab Results Vital Signs Most Recent Vital Signs in EMR: Most Recent Vital Signs Temp Pulse Resp BP Pulse Ox 36.6 C 64 16 139/77 99 11/06/21 06:35 11/06/21 06:35 11/06/21 06:35 11/06/21 06:35 11/06/21 06:35 Lab Results Blood Type / Crossmatch: No Data to Display Complete Blood Count: White Blood Count 7.87 10^3/uL (4.4-10.8) 10/09/21 20:15 Red Blood Count 4.47 10^6/uL (3.93-5.22) 10/09/21 20:15 Hemoglobin 13.6 g/dL (11.2-15.7) 10/09/21 20:15 Hematocrit 40.0 % (36.0-46.0) 10/09/21 20:15 Platelet Count 276 10^3/uL (130-400) 10/09/21 20:15 Complete Metabolic Panel: Sodium Level 140 mmol/L (136-145) 10/09/21 20:15 Potassium Level 3.8 mmol/L (3.5-5.1) 10/09/21 20:15 Chloride Level 104 mmol/L (98-107) 10/09/21 20:15 Carbon Dioxide Level 26.8 mmol/L (21.0-32.0) 10/09/21 20:15 Blood Urea Nitrogen 19 mg/dL (7-18) H 10/09/21 20:15 Creatinine 0.7 mg/dL (0.55-1.02) 10/09/21 20:15 Estimated GFR/1.73 m2 >= 60.00 (mL/min/1.73m2) 10/09/21 20:15 Calcium Level 9.2 mg/dL (8.5-10.1) 10/09/21 20:15 Albumin 3.7 g/dL (3.4-5.0) 10/09/21 20:15 Glucose Level 169 mg/dL (74-106) H 10/09/21 20:15 Liver Function Panel: Alanine Aminotransferase (ALT/SGPT) 39 U/L (14-59) 10/09/21 20:15 Aspartate Amino Transf (AST/SGOT) 22 U/L (15-37) 10/09/21 20:15 Coagulation Panel: No Data to Display Cardiac Panel: Troponin I < 50 ng/L (<or=60) 10/09/21 Arterial Blood Gas: No Data to Display Venous Blood Gas: No Data to Display Pancreas Panel: Lipase 176 U/L (73-393) 10/09/21 20:15 Thyroid Panel: Thyroid Stimulating Hormone (TSH) 1.34 uIU/mL (0.36-3.74) 10/26/21 13:55 Infectious Disease: Coronavirus (COVID-19)(PCR) Negative (Negative) 11/03/21 08:10 Coronavirus 2019 Source Nasal/Nares 11/03/21 08:10 Blood Cultures: No Data to Display Toxicology Panel: No Data to Display Imaging and Studies Imaging and Studies Study information below may be from another EMR and interpreted by another provider. Please see original notes in EMR for more complete details. EKG Summary: DATE/TIME OF SERVICE: 10/09/212015 : 1950PERFORMING LOCATION: ER APPROVED REPORT Exam: Resting ECG Reason for Exam: vomiting Patient Location: E HR:56 bpm ECG Measurements Heart Rate 56 AXIS MO 156 P 60 QRSd 93 QRS 14 QT 440 T64 QTc 427 Conclusion Sinus bradycardia...rate< 60 Anesthesia Assessment and Plan Anesthesia History Personal History: No History of Anesthesia Complications Family History: No Family History of Anesthesia Complications Exercise Tolerance Exercise Tolerance: Metabolic Equivalents>4 Pertinent Negatives Pertinent Negatives: No Symptoms of GERD, No Major Cardiovascular Symptoms or Complaints and No Major Pulmonary Symptoms or Complaints Cardiac & Pulmonary Exam Cardiac Exam: Normal S1/S2 Heart Sounds Pulmonary Exam: Clear Bilateral Breath Sounds Implantable Cardiac Device Does patient have a Pacemaker or an ICD?: No Airway Exam Known Difficult Airway: No Mallampati Class: 2 Mouth Opening: Normal (> 3cm) Thyromental Distance: Greater than 3 cm Neck Range of Motion: Full ROM Neck Circumference: Normal Teeth Condition: Normal Dentition ASA Classification ASA Score: ASA 2 Emergency Case?: No NPO Status NPO Status: NPO Clears >2 hours, Solids >8 hours Anesthesia Plan Resuscitation Status: Full Code Anesthesia Technique: General Anesthesia Airway Planned: Natural Airway Monitors Used: Standard Monitors
[2021-11-06 06:58] VITALS: BMI 19.3
--- NOTE | 2021-11-06 07:32 | STOM_PTH ---
PATIENT: Susie Hernadez LOC: [facility] U#:[id number] AGE/SX: 71/F ROOM: RE11/06/[address]: Felecia Ceballos MD : 1950 BED: DIS: 11/06/2021 SPEC #: [id number] RECD: 11/06/21 12:02 STATUS: JHONNY REQ #: [id number] CLINT: 11/06/21 07:[address]: Felecia Ceballos DEPT: Surgical Specimen RECD BY: Betty Morillo ENTERED: 11/06/21 12:04 SP TYPE: STOMACH OTHR DR: Lucila Lee Tissues: 1 - STOMACH BIOPSY 2 - STOMACH BIOPSY 3 - ESOPHAGUS BIOPSY Procedures: GROSS AND MICRO LEVEL 4 Comments: [id number]
[2021-11-06 07:47] VITALS: BP 108/72; PULSE 69; RESP 16; TEMP 36.6; O2SAT 99
[2021-11-06 08:15] VITALS: BP 156/80; PULSE 60; RESP 16; TEMP 36.8; O2SAT 99
--- NOTE | 2021-11-06 08:45 | W.ANESPOSTOP ---
Postoperative Evaluation Date, Time and Location Date Performed: 11/06/21 Time Performed: 08:45 Patient Location: Day Surgery Unit Vital Signs Most Recent Imported Vital Signs: Most Recent Vital Signs Temp Pulse Resp BP Pulse Ox 36.8 C 60 16 156/80 H 99 11/06/21 08:15 11/06/21 08:15 11/06/21 08:15 11/06/21 08:15 11/06/21 08:15 Pain Score Most Recent Pain Score: Most Recent Pain Score Pain Level 0 11/06/21 06:35 Assessment Mental Status: Awake (Alert & Oriented to Patient Baseline) Airway and Respiratory Function: Patent airway with normal (patient baseline) respiratory exam Cardiovascular Function: Hemodynamically Stable Hydration Status: Adequately Hydrated Nausea & Vomiting: No Nausea or Vomiting Pain: Pt. Denies Any Pain Peripheral Nerve Block: Patient did not receive a nerve block
== END 2021-11-06 09:15 | disposition home or self-care (01) ==
PROVIDERS: PCP Nurse Practitioner; Visit Provider Surgery
PROC: 0DJ68ZZ Inspection of Stomach, Via Natural or Artificial Opening Endoscopic (ICD-10-PCS; CPT 43235; principal; 2021-11-06 07:30)
DX: K21.9 Gastro-esophageal reflux disease without esophagitis (principal); K25.9 Gastric ulcer, unspecified as acute or chronic, without hemorrhage or perforation; K29.70 Gastritis, unspecified, without bleeding; K31.89 Other diseases of stomach and duodenum; K22.89 Other specified disease of esophagus
CPT/HCPCS: 43239; 88305

== ENCOUNTER → 2021-12-05 12:49 | Outpatient (BNVA) | payer MEDICARE, OTHER, SELFPAY | PROVIDERS: PCP Nurse Practitioner; Referring Provider Nurse Practitioner; Visit Provider Surgery | DX: K21.9 Gastro-esophageal reflux disease without esophagitis (principal) | CPT/HCPCS: 99212; 99213 ==

== ENCOUNTER 2022-04-18 15:04 | Outpatient (REF) | payer MEDICARE, OTHER, SELFPAY ==
[2022-04-18 16:31] LABS: Calculated LDL 105 mg/dL (<100); Cholesterol 189 mg/dL (<200); HDL Cholesterol 60 mg/dL (40-60); TSH 2.73 uIU/mL (0.36-3.74); Triglyceride 123 mg/dL (<150)
[2022-04-18 16:59] LABS: Hemoglobin A1C 7.6 % (<5.7)
== END 2022-04-18 15:05 | disposition home or self-care (01) ==
LOC: NCHCN 15:04
PROVIDERS: PCP Nurse Practitioner; Visit Provider Nurse Practitioner Family
DX: E11.9 Type 2 diabetes mellitus without complications (principal)
CPT/HCPCS: 80061; 83036; 84443

== ENCOUNTER 2022-12-11 13:08 | Outpatient (REF) | payer MEDICARE, OTHER, SELFPAY ==
[2022-12-11 18:14] LABS: Abs Immature Grans 0.01 10^3/uL (0.0-0.06); Absolute Basophil Count 0.06 10^3/uL (0.0-0.2); Absolute Eosinophil Count 1.62 10^3/uL (0.0-0.7); Absolute Lymphocyte Count 2.09 10^3/uL (1.2-3.4); Absolute Monocyte Count 0.43 10^3/uL (0.1-0.8); Absolute Neutrophil Count 3.58 10^3/uL (1.2-6.7); Basophils % 0.8; Eosinophils % 20.8; Immature Grans % 0.1; Lymphocytes % 26.8; MCH 30.6 pg (27.0-33.0); MCHC 33.3 % (32.0-36.0); MCV 92 fL (80-95); MPV 10.1 fL (8.0-11.0); Monocytes % 5.5; Platelet Count 280 10^3/uL (130-400); RBC 4.57 10^6/uL (3.93-5.22); RDW 12.3 % (11.7-14.6); RDW-SD 41.6 fL; WBC 7.79 10^3/uL (4.4-10.8)
[2022-12-11 18:34] LABS: ALT 32 U/L (14-59); AST 19 U/L (15-37); Albumin 3.6 g/dL (3.4-5.0); Alkaline Phosphatase 126 U/L (46-116); Anion Gap 10.3 mmol/L (3-11); BUN 22 mg/dL (7-18); Bilirubin, Total 0.1 mg/dL (0.2-1.0); CO2 25.7 mmol/L (21.0-32.0); CREATININE 0.9 mg/dL (0.55-1.02); Calcium 8.7 mg/dL (8.5-10.1); Chloride 106 mmol/L (98-107); Estimated GFR 67.08 (mL/min/1.73m2); Glucose 211 mg/dL (74-106); Potassium 3.7 mmol/L (3.5-5.1); Sodium 142 mmol/L (136-145); TSH 1.64 uIU/mL (0.36-3.74); Total Protein 7.1 g/dL (6.4-8.2)
== END 2022-12-11 13:09 | disposition home or self-care (01) ==
LOC: NCHCN 13:08
PROVIDERS: PCP Nurse Practitioner; Visit Provider Nurse Practitioner Family
DX: E03.9 Hypothyroidism, unspecified (principal); E11.9 Type 2 diabetes mellitus without complications; R63.0 Anorexia
CPT/HCPCS: 80053; 84443; 85025

== ENCOUNTER → 2023-04-02 00:08 | Outpatient (CLI) | payer MEDICARE, OTHER, SELFPAY ==
--- NOTE | 2023-04-02 | DI.MAMMO_ITS ---
Exam(s) MAMMO SCREENING EXAM: MAMMO SCREENING CLINICAL HISTORY: Z12.39 Screening TECHNIQUE: Mammograms were interpreted according to the usual protocol including computer analysis w [employer] CAD system, tomosynthesis and C-view imaging. COMPARISON: 2016 through 2021 FINDINGS: The breasts are composed of scattered fibroglandular densities, Breast Density category B. No suspicious masses or suspicious microcalcifications are seen. No skin thickening or abnormal axillary lymph nodes are seen. There has been no significant change from prior exams. IMPRESSION: BI-RADS Category 1, Negative mammogram Yearly screening mammography is recommended. Breast Density - Category B, scattered fibroglandular densities. A negative radiographic report should not delay biopsy if a dominant or clinically suspicious mass is present. Up to ten percent of cancers are not identified on mammography. A negative report may reinforce clinical impression. Adenosis and dense breasts may obscure an underlying neoplasm. False positive reports average 6 to 10%. Patient will receive a letter notifying them of these results.
== END ==
PROVIDERS: PCP Nurse Practitioner; Visit Provider Nurse Practitioner Family
DX: Z12.31 Encounter for screening mammogram for malignant neoplasm of breast (principal)
CPT/HCPCS: 77063; 77067

== ENCOUNTER 2023-09-27 13:37 | Outpatient (REF) | payer MEDICARE, OTHER, SELFPAY ==
[2023-09-27 14:46] LABS: Albumin 3.9 g/dL (3.4-5.0); Alkaline Phosphatase 128 U/L (46-116); BUN 21 mg/dL (7-18); CREATININE 0.6 mg/dL (0.55-1.02); Calcium 8.9 mg/dL (8.5-10.1); Chloride 104 mmol/L (98-107); Estimated GFR 94.13 (mL/min/1.73m2); Glucose 127 mg/dL (74-106); Potassium 4.2 mmol/L (3.5-5.1); Sodium 141 mmol/L (136-145); TSH (W/Ref FT4) 2.93 uIU/mL (0.36-3.74); Total Protein 7.6 g/dL (6.4-8.2)
[2023-09-27 16:33] LABS: Bilirubin, Total 0.3 mg/dL (0.2-1.0)
[2023-09-27 16:34] LABS: AST 16 U/L (15-37)
[2023-09-27 16:36] LABS: ALT 36 U/L (14-59)
== END 2023-09-27 13:38 | disposition home or self-care (01) ==
LOC: NCHCN 13:37
PROVIDERS: PCP Nurse Practitioner Family; Visit Provider Nurse Practitioner Family
DX: E11.9 Type 2 diabetes mellitus without complications (principal)
CPT/HCPCS: 80053; 83036; 84443

== ENCOUNTER 2024-05-29 19:03 | Outpatient (REF) | payer MEDICARE, OTHER, SELFPAY ==
--- OUTSIDE RECORDS SUMMARY | 2024-05-29 19:05 | XMS_ITS | Encounter Summary ---
Author Organization [facility] Address [address] [place] [address] Care Team Providers Care Automatic Chief Name Role Phone Jensen Vilchis MD Primary Care Provider [phone] Encounter Details Date Type Department Care Team (Late st Contact Info) Description 11/06/2021 Lab Requisition [facility] Pathology & Laboratory Medicine - [address] [address] Juancarlos Ceballos MD [facility] [place] [place] [address] Encounter for other general examination Social History Tobacco Use Types Packs/Day Years Used Date Smoking Tobacco: Never Assessed Comments Unknown Sex and Gender Information Value Date Recorded Sex Assigned at Not on file Legal Sex Female 18:23 EST Gender Identity Not on file Sexual Orientation Not on file documented as of this encounter Plan of Treatment Not on file documented as of this encounter Procedures Procedure Name Priority Date/Time Associated Diagnosis Comments SURGICAL PATHOLOGY Today 11/06/2021 7: 32 EDT Encounter for other general examination documented in this encounter Results * SURGICAL PATHOLOGY (11/06/2021 7:32 EDT) Note to Patient The following pathology results have been interpreted by your pathologist and may be available to you before your health provider has had the opportunity to review them. Please allow time for your provider to receive these results and explore management options, if applicable. 11/08/2021 16:46 EDT [facility] Final Diagnosis A. STOMACH, ULCER, BIOPSY: - Moderate active erosive gastritis with reactive foveolar hyperplasia. - Mild epithelial inflammatory atypia; negative for dysplasia. - Negative for Helicobacter pylori on H&E stained sections. - Negative for malignancy. - Deeper sections x3 examined. B. STOMACH, ANTRUM, BIOPSY: - Antral mucosa with reactive (chemical) gastropathy. - Negative for Helicobacter pylori on H&E stained sections. C. GASTROESOPHAGEAL JUNCTION, BIOPSY: - Mild active chronic inflammation of squamocolumnar mucosa with reactive changes. - Negative for intestinal metaplasia and dysplasia. - Deeper sections x3 examined. 11/08/2021 16:46 [facility] Attestation By the signature below, the attending physician certifies that they have 1) personally conducted a gross and/or microscopic examination of the described specimen(s), and/or personally interpreted the results of laboratory testing of the described specimen(s), and 2) personally rendered or confirmed the above diagnosis. 11/08/2021 16:46 [facility] at 1646 Clinical History GERD, abnormal CT scan 11/08/2021 16:46 [facility] Gross Description A. Received in formalin labelled with proper patient identification (initials R, A) and gastric ulcer bx is a single fragment of doshi soft tissue (0.2 x 0.2 x 0.2 cm). The specimen is entirely submitted in A1. B. Received in formalin labelled with proper patient identification (initials R, A) and antrum bx is a single fragment of doshi soft tissue (0.4 x 0.3 x 0.2 cm). The specimen is entirely submitted in B1. C. Received in formalin labelled with proper patient identification (initials R, A) and GE junction bx are 2 fragments of doshi soft tissue (each averaging 0.3 x 0.2 x 0.2 cm). The specimen is entirely submitted in C1. ANTONIA LAZO(ASCP) 11/07/2021 7:59 11/08/2021 16:46 [facility] Performing Lab [facility] 16:46 [facility] Scanned Images 11/08/2021 16:46 [facility] Tissue ENTIRE ESOPHAGO-CEDRIC ADEOLA MUCOSAL JUNCTION / Unknown 11/06/2021 7:32 EDT 11/06/2021 18:59 EDT Tissue specimen (specimen) PYLORIC ANTRUM STRUCTURE / Unknown 11/06/2021 7:32 EDT 11/06/2021 18:59 EDT Tissue specimen (specimen) CARDIOESOPHAGEAL JUNCTION STRUCTURE / Unknown 11/06/2021 7:32 EDT 11/06/2021 18:59 EDT us Juancarlos Ceballos MD PATHOLOGY ORDERABLES Fin al Result [facility] [address] [place] [address] documented in this encounter Visit Diagnoses Diagnosis Encounter for other general examination documented in this encounter Care Teams Automatic Chief Relationship Specialty Start Date End Date Jensen Vilchis MD [address] [place] [address] PCP - General 07/07/09 documented as of this encounter
--- OUTSIDE RECORDS SUMMARY | 2024-05-29 19:05 | XMS_ITS | Encounter Summary ---
Author Organization [facility] Address [address] [place] [address] Care Team Providers Care Regrader Name Role Phone Jensen Vilchis MD Primary Care Provider [phone] Encounter Details Date Type Department Care Team (Late st Contact Info) Description 08/06/2001 Results Only [facility] - Maple conversion [address] [place], [place] [address] Ashlee Chadwick, WREATH MACHINE TENDER [address] [facility],[address] [address] Social History Tobacco Use Types Packs/Day Years [...] Procedure Name Priority Date/Time Associated Diagnosis Comments CYTOPATHOLOGY Routine 08/06/2001 0:00 EST documented in this encounter Results * CYTOPATHOLOGY (08/06/2001 0:00 EST) Pathology Report: CYTOPATHOLOGY REPORT Reports generated via electronic interface contain original data; however they are lacking the format of the original report. Caution should be taken when reading/interpreti ng unformatted reports. Name: ? NADEGE BUSTAMANTE ? Accession #: ? [id number] : ? 1950 (Age: 50) ??F ?Collect Date: ? 08/06/2001 Location: ? [facility] ? Receive Date: ? 08/08/2001 Provider: ?ASHLEE CHADWICK WREATH MACHINE TENDER Copy to: ? Specimen/Source: ?Conventional Pap Test, Cervix/Endocervix Last Menstrual Period: ? Hormonal/Contracep tive Status: ? Yes ? SPECIMEN ADEQUACY ? Satisfactory for Evaluation - transformation zone component present - obscuring inflammation GENERAL CATEGORIZATION ? Negative for Intraepithelial Lesion or Malignancy ? Document reviewed and electronically signed by: ? Joanne Allen, [place](ASCP) ? Report Date: ??08/13/2001 11:09 End of Report [facility] 08/06/2001 08/08/2001 us Ashlee Chadwick NP PATHOLOGY ORDERABLES Final R esult Performing Organization Address City/State/[facility] Co de Phone Number [facility] [address] [place] [address] documented in this encounter Visit Diagnoses Not on filedocumented in this encounter Care Teams Regrader Relationship Specialty Start Date End Date Jensen Vilchis MD [address] [place] [address] PCP - General 07/07/09 documented as of this encounter
--- OUTSIDE RECORDS SUMMARY | 2024-05-29 19:05 | XMS_ITS | Encounter Summary ---
Author Organization [facility] Address [address] [place] [address] Care Team Providers Care Mill Hand Plate Mill Name Role Phone Jensen Vilchis MD Primary Care Provider [phone] Encounter Details Date Type Department Care Team (Late st Contact Info) Description 08/10/2002 Results Only [facility] - Maple conversion [address] [place] [address] Jacob Bello, DAVIDE [address] [place] [address] Social History Tobacco Use Types Packs/Day [...] Priority Date/Time Associated Diagnosis Comments CYTOPATHOLOGY Routine 08/10/2002 0:00 EST documented in this encounter Results * CYTOPATHOLOGY (08/10/2002 0:00 EST) Pathology Report: CYTOPATHOLOGY REPORT Reports generated via electronic interface contain original data; however they are lacking the format of the original report. Caution should be taken when reading/interpreti ng unformatted reports. Name: ? NADEGE BUSTAMANTE ? Accession #: ? [id number] : ? 1950 (Age: 51) ??F ?Collect Date: ? 08/10/2002 Location: ? [facility] ? Receive Date: ? 08/12/2002 Provider: ?JACOB BELLO STEREOPLOTTER OPERATOR Copy to: ? Specimen/Source: ?ThinPrep Pap Test, Cervix/Endocervix Last Menstrual Period: ? 2000 Other: ? HPVA - HPV testing requested if ASC-US on the current ThinPrep Pap test. ? SPECIMEN ADEQUACY ? Satisfactory for Evaluation - transformation zone component present GENERAL CATEGORIZATION ? Negative for Intraepithelial Lesion or Malignancy ? Document reviewed and electronically signed by: ? Alexa Posada, SCT(ASCP) ? Report Date: ??08/14/2002 12:35 End of Report [facility] 08/10/2002 08/12/2002 us Jacob Bello STEREOPLOTTER OPERATOR PATHOLOGY ORDERABLES Final R esult [facility] [address] [place] [address] documented in this encounter Visit Diagnoses Not on filedocumented in this encounter Care Teams Mill Hand Plate Mill Relationship Specialty Start Date End Date Jensen Vilchis MD [address] [place] [address] PCP - General 07/07/09 documented as of this encounter
--- OUTSIDE RECORDS SUMMARY | 2024-05-29 19:05 | XMS_ITS | Encounter Summary ---
Author Organization [facility] Address [address] [place] [address] Care Team Providers Care Babbitter Name Role Phone Jensen Vilchis MD Primary Care Provider [phone] Encounter Details Date Type Department Care Team (Late st Contact Info) Description 11/14/2020 Lab Requisition [facility] Pathology & Laboratory Medicine - [facility] [address] [place] [address] Sincere Marks, [facility] [address] [place] [address] Encounter for other general examination [...] Date/Time Associated Diagnosis Comments SURGICAL PATHOLOGY Today 11/11/2020 14 :00 EDT Encounter for other general examination documented in this encounter Results * SURGICAL PATHOLOGY (11/11/2020 14:00 EDT) Final Diagnosis A. SKIN OF LEG, LEFT LOWER, PUNCH BIOPSY: - Subtle dermal sclerosis with associated perivascular and interstitial inflammation. See microscopic and comment. 11/15/2020 14:[address] [facility] Diagnosis Comment The findings are relatively subtle, despite deeper levels. Present are foci with the dermal collagen fibers appear sclerotic and are accompanied by a mild inflammatory infiltrate which includes plasma cells. While not fully developed, some of the findings raise morphea as a consideration. There is no subcutis sampled to evaluate for erythema nodosum. Clinical correlation is essential. Latex Caster slides of this case were reviewed at the intradepartmental consultation conference. 11/15/2020 14:50 [facility] Attestation By the signature below, the attending physician certifies that they have 1) personally conducted a gross and/or microscopic examination of the described specimen(s), and/or personally interpreted the results of laboratory testing of the described specimen(s), and 2) personally rendered or confirmed the above diagnosis. 11/15/2020 14:50 [facility] at 1450 Microscopic Description Sections consist of a punch biopsy of skin. The epidermis shows effacement of the rete ridge pattern. There is variable melanin pigment distribution with the keratinocytes. Within the dermis are areas of sclerosis of the dermal collagen fibers. Within these foci, there is a perivascular and interstitial mixed inflammatory infiltrate of mild density which includes lymphomononuclear cells and plasma cells. Within this region, there is a decrease in periadnexal adipocytes. Deeper levels have been examined. 11/15/2020 14:50 [facility] Clinical History Macular areas of erythema/skin discoloration on lower legs x1-2 years bilateral, mild associated itching; possibly erythema nodosa 11/15/2020 14:50 [facility] Gross Description A. Received in formalin labelled with proper patient identification (initials R, A) and L lower leg is a punch biopsy of doshi scaly skin (0.6 cm in diameter and 0.5 cm in depth). Bisected and entirely submitted in A1. ANTONIA GILBERT(ASCP) 11/14/2020 17:19 11/15/2020 14:50 [facility] Performing Lab [facility] 11/15/2020 14:50 [facility] Scanned Images 11/15/2020 14:50 [facility] Tissue TISSUE SPECIMEN FROM SKIN / Unknown 11/11/2020 14:00 EDT 11/14/2020 17:02 EDT us Sincere Marks RPA PATHOLOGY ORDERABLES Julieta sidney Result [facility] [address] [place] [address] documented in this encounter Visit Diagnoses Diagnosis Encounter for other general examination documented in this encounter Care Teams Babbitter Relationship Specialty Start Date End Date Jensen Vilchis MD [address] [place] [address] PCP - General 07/07/09 documented as of this encounter
--- OUTSIDE RECORDS SUMMARY | 2024-05-29 19:05 | XMS_ITS | Clinical Summary ---
Author Organization [facility] Address [address] [place] [address] Care Team Providers Care Insulation Worker Interior Surface Name Role Phone Jensen Vilchis MD Primary Care Provider [phone] Social History Tobacco Use Types Packs/Day Years Used Date Smoking Tobacco: Never Assessed Comments Unknown Sex and Gender Information Value Date Recorded Sex Assigned at Not on file Legal Sex Female 18:23 EST Gender Identity Not on file Sexual Orientation Not on file Plan of Treatment Health Maintenance Due Date Last Done Comments Hepatitis C Screen 1950 Fall Risk Screening 2013 RSV Immunization ( o r 60+ Years) (1 - 1-dose 75+ series) 10/05/2023 COVID-19 Vaccine (2023- season) 2024 Insurance [facility] MEDIC[facility] [place] Care Teams Insulation Worker Interior Surface Relationship Specialty Start Date End Date Jensen Vilchis MD [address] [place] [address] PCP - General 07/07/09
--- OUTSIDE RECORDS SUMMARY | 2024-05-29 19:05 | XMS_ITS | Encounter Summary ---
Author Organization [facility] Address [address] [place] [address] Care Team Providers Care Petroleum Refinery Operator Name Role Phone Jensen Vilchis MD Primary Care Provider [phone] Encounter Details Date Type Department Care Team (Late st Contact Info) Description 10/23/2004 Results Only [facility] - Maple conversion [address] [place] [address] Chandler Israel MD [address] [place] [address] Social History Tobacco Use Types Packs/Day Years [...] Priority Date/Time Associated Diagnosis Comments SURGICAL PATHOLOGY Routine 10/23/2004 0:00 EDT documented in this encounter Results * SURGICAL PATHOLOGY (10/23/2004 0:00 EDT) Pathology Report: SURGICAL PATHOLOGY REPORT Reports generated via electronic interface contain original data; however they are lacking the format of the original report. Caution should be taken when reading/interpreti ng unformatted reports. Name: ? NADEGE BUSTAMANTE ? Accession #: ? [id number] ? : ? 1950 (Age: 54) ??F ? Collect Date: ? 10/23/2004 ? Location: ? [facility] ? Receive Date: ? 10/23/2004 ? Provider: CHANDLER ISRAEL MD Copy to: VALENTIN CHADWICK BRIM BLOCKER ? Final Pathologic Diagnosis: A. ?Esophagus, 35 cm, biopsy: 1. ?Squamous mucosa with reflux esophagitis. 2. ?Columnar mucosa with mild chronic inflammation. ?- No intestinal metaplasia identified. B. ?Stomach, body, biopsy: 1. ?Fundic type mucosa with mild chronic gastritis. 2. ?No Helicobacter pylori-like organisms identified on H & E stain. Document reviewed and electronically signed by: DINESH CAICEDO MD Report ??Date: 10/25/2004 15:38 By the signature above, the attending physician certifies that he/she has personally conducted a gross and/or microscopic examination of the described specimens and rendered or confirmed the above diagnosis. Specimen(s) Received: A. ?Bx esophagus @ 35 cm B. ?Body of stomach bx Clinical History: ? Acid peptic sx Gross Description: ? Received in Hollande's fixative labelled Redznak and biopsy esophagus at 35 cm are six fragments of tissue which range in size from 0.1 x 0.1 x 0.1 cm to 0.3 x 0.2 x 0.1 cm. ??Submitted as (A1) and (A2). Received in Hollande's fixative labelled Redznak and biopsy body of stomach are three fragments of tissue which measure 0.2 x 0.2 x 0.1 cm to 0.4 x 0.2 x 0.1 cm. ??Submitted as (B). ??(Benjamin Tran)/tmg End of Report [facility] 10/23/2004 10/23/2004 15: 26 EDT us Chandler Israel MD PATHOLOGY ORDERABLES Final Result Performing Organization Address City/State/[facility] Co de Phone Number [facility] [address] [place] [address] documented in this encounter Visit Diagnoses Not on filedocumented in this encounter Care Teams Petroleum Refinery Operator Relationship Specialty Start Date End Date Jensen Vilchis MD [address] [place] [id number] PCP - General 07/07/09 documented as of this encounter
--- OUTSIDE RECORDS SUMMARY | 2024-05-29 19:05 | XMS_ITS | Continuity of Care Document ---
Author Organization [facility] Address [address] [place] [address] Assessment No assessment recorded. Plan of Treatment Reminders Order Date Submit Date Provider Last Modified By Organization Details Last Modified Time Details Appointments Follow Up 2024 01:00P Elvira STEPHANIE ALLEN Not available Not available Not available Pre - Op 40 2024 01:30P Elvira ALLEN Not available Not available Not available Follow Up 30 2024 01:00P Elvira ALLEN Not available Not available Not available Lab None recorded . Referral None recorded . Procedures None recorded . Surgeries None recorded . Imaging None recorded . Medication Orders None recorded . Patient TargetsNo targets recorded. Patient InstructionsNo instructions recorded. Reason for Referral None Reported. Results Created Date Observation Date Name Description Value Unit Range Abnormal Flag Note LastModifiedBy Organization Detail LastModifiedTime 02/03/20 24 10/09/2021 imagi ng/di agnos tic resul t No observ ation record ed. Not Available 02/02 06:38:49 02/03/20 24 05/24/2021 DEXA No observ ation record ed. Not Available 02/02 06:39:41 02/03/20 24 10/09/2021 imagi ng/di agnos tic resul t No observ ation record ed. Not Available 02/02 06:40:14 02/03/20 24 10/10/2021 imagi ng/di agnos tic resul t No observ ation record ed. Not Available 02/02 06:40:32 02/03/20 24 04/02/2023 MAMMO , scree luis No observ ation record ed. Not Available 02/02 06:40:35 02/03/20 24 05/22/2021 enrique SOTO No observ ation record ed. Not Available 02/02 06:40:36 02/03/20 24 06/17/2019 enrique SOTO No observ ation record ed. Not Available 02/02 06:40:38 Result Notes None recorded. Problems Name Problem SNOMED Code Status Onset Date Resolution Date Notes Provider Name and Address Organization Details Recorded Time Change in skin lesion 914516799 Active 2024 ALBERT GRANGER [address], [place], [address] , [facility] 5 13:35:57 Ganglion cyst 792327358 Active 2017 [facility] 4 20:43:49 Disorder of skin and/or subcutan eous tissue 29564250 Completed 202011/12/2020 11/12/19 21 - Comments only - Sincere Marks RPA - Lower legs bilatera lly. With prior consent we proceede d with a 6 mm punch biopsy of a characte ristic lesion on her left lower extremit y. Betadine was used to clean the area prior. No touch techniqu e used. A single 5-0 suture was placed followin g the biopsy. Postproc edural instruct ions provided . Return in 1 week for suture removal. Follow-u p by phone with results of patholog y. 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 Priority at this time, continue to follow-u p with general surgery for tentativ e scope schedule d in 2 weeks. GERD symptoms have improved with pantopra zole and Carafate use. Current medicati ons refilled . 6-month follow-u p. Influenz a and fourth COVID shot this fall. Cologoliverio tran ordered continue s to decline colonosc opy carlottain g. See instruct ions below. Problem Code: Z71.89; Problem Code Type: ICD-10; Not Available [facility] 3 04:32:54 Counseli bri Completed 202101/24/2022 01/24/20 22 - Comments only - Stephanie Allen HOT BOX OPERATOR - Rozina stapleton on my panel as of today Problem Code: Z71.89; Problem Code Type: ICD-10; Not Available [facility] 3 04:32:54 Cough 31528153 Completed 202103/22/2023 Problem Code: R05.8; Problem Code Type: ICD-10; Not Available [facility] 4 05:34:25 Eczema 81929695 Active 2021 [facility] 4 20:43:44 Atopic dermatit is 51676796 Active 2022 [facility] 4 20:43:40 Loss of appetite 95317595 Completed 202209/27/2023 ALBERT GRANGER [address], [place], [address] , [facility] 4 09:57:44 Impacted cerumen in left ear [id number] 11686 Completed 202201/17/[address], [place], [address] , [facility] 4 12:26:59 Gastroes ophageal reflux disease without esophagi tis 201551668 Active 2004 Darrencamila Oak[facility] 4 20:43:53 Hypothyr oidism 91557506 Active 2010 [facility] 4 20:43:57 Pure hypercho lesterol emia 733560765 Active 2004 [facility] 4 20:44:15 Type 2 diabetes mellitus without complica tion 986297381 Active 2014 [facility] 4 20:44:23 Abdomina l pain 08721713 Completed 202112/08/2021 Problem Code: R10.9; Problem Code Type: ICD-10; Not Available [facility] 3 04:32:56 Blood glucose outside referenc e range 729604658 Completed 201402/13/2023 Problem Code: R73.09; Problem Code Type: ICD-10; Not Available [facility] 3 04:32:56 Screenin g for malignan t neoplasm of breast Completed 201601/17/2024 [address] GRANGER [address] [place] [address] , [place], [address] [facility] 4 12:39:43 Gastroes ophageal reflux disease 702128884 Completed 200402/13/2023 Not Available [facility] 3 04:32:57 Allergy Completed 200505/21/2021 Problem Code: 995.3; Problem Code Type: ICD-9; Not Available [facility] 3 04:32:57 Blood glucose outside referenc e range 901719702 Completed 200611/16/2015 Problem Code: R73.09; Problem Code Type: ICD-10; Not Available [facility] 3 04:32:58 Glucose level outside referenc e range 836912371 Completed 200602/13/2023 Problem Code: 790.29; Problem Code Type: ICD-9; Not Available [facility] 3 04:32:58 Pain in left lower limb 813157423 Completed 201905/21/2021 Problem Code: M79.605; Problem Code Type: ICD-10; Not Available [facility] 3 04:32:59 Repeat prescrip tion monitori ng Completed 202112/08/2021 Problem Code: Z76.0; Problem Code Type: ICD-10; Not Available [facility] 3 04:32:59 Acute pharyngi tis 824285897 Completed 202112/08/2021 Problem Code: J02.9; Problem Code Type: ICD-10; Not Available [facility] 3 04:33:00 Pain of right shoulder joint 95305962487 419960 Completed 201605/21/2021 Problem Code: M25.511; Problem Code Type: ICD-10; Not Available [facility] 3 04:33:00 COVID-19 952954708 Completed 202101/23/2022 Problem Code: U07.1; Problem Code Type: ICD-10; Not Available [facility] 3 04:33:00 Pain 01115790 Completed 202102/13/2023 Problem Code: R52; Problem Code Type: ICD-10; Not Available [facility] 3 04:33:00 Screenin g for malignan t neoplasm of colon Completed 201604/23/2017 Problem Code: Z12.11; Problem Code Type: ICD-10; Not Available [facility] 3 04:33:01 Neck pain 52372265 Active 2023 ALBERT GRANGER [address], [place], [address] , [facility] 4 12:39:55 Problem Notes None recorded. Procedures Surgical History Date Name Laterality Status Provider Name and Address Organization Details Recorded Time 3 Most Recent Mammogram completed ROJAS AARON RN [facility] 01/17/2024 10:37:23 5 Date of Last Colonoscopy completed ROJAS AARON RN [facility] 01/17/2024 10:36:54 Imaging Results None recorded. Procedure Notes None recorded. Medical Equipment None Reported. Allergies Allergen ID Allergen Name Allergen Category Reaction Reaction Severity Criticality Documentation Date Start Date Code Code System Note Provider Name and Address Organization Details Recorded Time 42361 Prevacid medicatio n rash mild Not available 03/29/20232005 43360 RxNorm ROJAS AARON RN [facility] 4 09:29:35 87856 soy environme nt,food,m edication rash severe Not available 09/18/20232007 Darrencamila Oak[facility] 4 20:44:[address] [facility] [facility] Not available Not available Not available 09/18/20232007 Darrencamila Oakley [facility] 4 20:45:[address] [facility] Not available Not available Not available 09/18/20232007 Darren Oakley [facility] 4 20:45:20 Medications Name Sig Start Date Stop Date Status Note LastModified by Organization Details LastModified Time metformin 500 mg tablet Take 1 tab by mouth daily 03/18 completed Not Available Not Available Not Available triamcino lone acetonide 0.5 % topical cream APPLY A SMALL AMOUNT TO ITCHING ECZEMA SPOTS UP TO TWO TIMES A DAY; DO NOT USE ON FACE. USE SPARINGL Y 09/26 completed Not Available Not Available Not Available cetirizin e 10 mg tablet TAKE ONE TABLET BY MOUTH EVERY DAY FOR DRY COUGH ALLERGY SYMPTOM 05/29 completed Not Available Not Available Not Available atorvasta tin 10 mg tablet TAKE ONE TABLET BY MOUTH EVERY EVENING active Not Available Not Available No t Available ranitidin e 300 mg tablet 1TAB q pm 08/27 completed Not Available Not Available Not Available sucralfat e 1 gram tablet Take 1 tablet by mouth twice a day at night 01/23 completed Not Available Not Available Not Available FreeStyle Lancets 28 gauge USE ONCE DAILY active Not Available Not Available No t Available famotidin e 40 mg tablet Take 1 tablet by mouth once a day 01/23 completed Not Available Not Available Not Available tramadol 50 mg tablet 1 TAB three times daily 09/01 completed Not Available Not Available Not Available triamcino lone acetonide 0.1 % topical cream APPLY TO AFFECTED AREA(S) TWO TIMES A DAY NEEDED FOR ECZEMA SPOT FLARE UPS active Not Available Not Available No t Available pantopraz ole 20 mg tablet,de layed release 2024 active pt stopped taking; started using super enzymes suppleme nt OTC and digestiv e issues resolved Not Available Not Available Not Available levothyro xine 75 mcg tablet TAKE ONE TABLET BY MOUTH EVERY DAY active Not Available Not Available No t Available lancets 1 prn, and as directed 05/22 completed Not Available Not Available Not Available levothyro xine 50 mcg tablet 1 TAB daily 09/12 completed Not Available Not Available Not Available cephalexi n 500 mg capsule TAKE ONE CAPSULE BY MOUTH THREE TIMES A DAY 09/26 completed Not Available Not Available Not Available pantopraz ole 40 mg tablet,de layed release TAKE ONE TABLET BY MOUTH EVERY DAY 01/16 completed dose decrease d to 20mg Not Available Not Available Not Available Elimite 5 % topical cream 1TAB as directed 10/28 completed Not Available Not Available Not Available loratadin e 10 mg tablet TAKE 1 TABLET BY MOUTH DAILY 01/23 completed Not Available Not Available Not Available Restasis 0.05 % eye drops in a dropperet te as needed active Not Available Not Available No t Available Fish Oil 1,000 mg capsule 2015 active otc Not Available Not Available Not Avai lable Albuterol Sulfate HFA 90 mcg/Actua tion aerosol inhaler 2 PUFFS .qid wheezing /SOB 03/02 completed Not Available Not Available Not Available amino acids 1 capsule once a day 01/16 completed Not Available Not Available Not Available calcium Take 3 tablets by mouth once a day 2018 active pt unsure of dosage, says it is more than 600 Not Available Not Available Not Available Fish Oil 340 mg-1,000 mg capsule 05/29 completed otc Not Available Not Available Not Available FreeStyle Lite Strips USE TO TEST BLOOD SUGAR ONCE DAILY active Not Available Not Available No t Available Invokana 100 mg tablet Take 0.5 tablets every day by oral route in the morning. 01/22 completed Not Available Not Available Not Available Farxiga 5 mg tablet Take 1 tablet by mouth once a day 02/03 completed Not Available Not Available Not Available Jardiance 10 mg tablet Take one tablet by mouth every day for Type II Diabetes active Not Available Not Available No t Available Multivita min Women 50 Plus 2 gummies daily active Not Available Not Available No t Available Glucosami ne Chondroit in 1TAB twice daily 03/23 completed Not Available Not Available Not Available Paxlovid 300 mg (150 mg x 2)-100 mg tablets in a dose pack Take 3 tablet by mouth twice a day for 5 days 01/23 completed Not Available Not Available Not Available Vitals None Recorded Social History Question Answer Notes LastModified by Organizat ion Details LastModified Time Tobacco Smoking Status Never Smoker ROJAS AARON RN [facility], [facility] 09/27/2023 09:30:48 What Was The Date Of Your Most Recent Tobacco Screening? 05/29/2024 Information not available 05/29/2024 Has Tobacco Cessation Counseling Been Provided? No Information not available 01/17/2024 Do You Or Have You Ever Used Any Other Forms Of Tobacco Or Nicotine? No Information not available 09/27/2023 Sex: Female Functional Status None recorded. Mental Status None recorded. Family History Relationship Description Onset Age of this Age Resolved Age Notes LastModified by Organization Details LastModified Time Mother Family history of Hypercholest erolemia isaac Not available 2022 04:00:46 Mother Family history of Hypertension [email or web address] Not available 02/2023 04:00:46 Notes:*Problem: Mother: Hype rlipidemia, HPTN Father: Brothers: Diabetes mellitus Children: Juan Hernadez ( 02/28/89). Family History of: Asthma: yes - son Hypertension: yes Hyperlipidemia: yes Coronary heart disease: yes - heart attacks in uncles Diabetes mellitus: yes Medical History No medical history recorded. Gynecological History Statement/Question Response Date of Last Colonoscopy 10/23/2004 Most Recent Mammogram 04/02/2023 Obstetrics History GPAL:G 0 P 0 0 0 0 Immunizations Vaccine Type Date Status Note Provider Nam e and Address Organization Details Recorded Time Tdap 2 completed Not Available [facility] 03/29/2023 05:06:23 Tdap 6 completed Not Available [facility] 03/29/2023 05:06:23 zoster live 2 completed Not Available [facility] 03/29/2023 05:06:23 zoster live 9 completed Not Available [facility] 03/29/2023 05:06:24 Pneumococcal conjugate PCV 13 6 completed Not Available [facility] 03/29/2023 05:06:24 Influenza, high-dose, trivalent, PF 8 completed Not Available [facility] 03/29/2023 05:06:24 Influenza, high-dose, trivalent, PF 7 completed Not Available [facility] 03/29/2023 05:06:24 Td(adult) unspecified formulation 4 completed Not Available [facility] 03/29/2023 05:06:25 Influenza, split virus, trivalent, preservative 6 completed Not Available [facility] 03/29/2023 05:06:25 Influenza, split virus, trivalent, preservative 5 completed Not Available [facility] 03/29/2023 05:06:25 Influenza, high-dose, quadrivalent, PF 2 completed Not Available [facility] 03/29/2023 05:06:27 Influenza, high-dose, quadrivalent, PF 0 completed Not Available [facility] 03/29/2023 05:06:27 Influenza, high-dose, quadrivalent, PF 1 completed Not Available [facility] 03/29/2023 05:06:27 COVID-19, mRNA, LNP-S, PF, 100 mcg/0.5mL dose or 50 mcg/0.25mL dose 1 completed Not Available [facility] 03/29/2023 05:06:28 COVID-19, mRNA, LNP-S, PF, 100 mcg/0.5mL dose or 50 mcg/0.25mL dose 1 completed Not Available [facility] 03/29/2023 05:06:28 SARS-COV-2 (COVID-19) vaccine, UNSPECIFIED 1 completed Not Available [facility] 03/29/2023 05:06:28 COVID-19, mRNA, LNP-S, bivalent, PF, 30 mcg/0.3 mL dose 2 completed Not Available [facility] 03/29/2023 05:06:29 pneumococcal polysaccharide PPV23 0 completed Not Available [facility] 03/29/2023 05:06:29 pneumococcal polysaccharide PPV23 4 completed Not Available [facility] 03/29/2023 05:06:30 influenza, unspecified formulation 1 completed Not Available [facility] 03/29/2023 05:06:31 Influenza, high-dose, trivalent, PF 4 completed RAYSA Salas [facility] 02/27/2024 13:21:46 COVID-19, mRNA, LNP-S, PF, barbra-sucrose, 30 mcg/0.3 mL 4 completed RAYSA Salas [facility] 02/27/2024 13:21:46 Influenza, high-dose, quadrivalent, PF 3 completed Not Available [facility] 05/31/2023 05:31:40 Past Encounters Encounter ID Performer Location Encounter Start Date Encounter Closed Date Diagnosis/Indication Diagnosis SNOMED-CT Code Diagnosis ICD10 Code Diagnosis Note [id number] Treva Archer [place] [facility] [place] [address] 02/27/2024 13:04:00 02/27/2024 13:16:54 Active or passive immunization [id number] Z23 Health Concerns Section Related Observation LastModified by Organization Detai ls LastModified Time None Recorded Concern Status LastModified by Organization Details LastModified Time None Recorded Payers Encounter Date Sequence Insurance Name Policy Number Policy Schmidt Covered Member ID Schmidt Member ID Guarantor Name 02/27/2024 2 FOR LIFE () Susie Hernadez [id number] Susie Hernadez 02/27/2024 1 MEDICARE [place] [employer] Sandi Hernadez [id number] Susie Hernadez OBGyn Episode No OBEpisode recorded.
--- OUTSIDE RECORDS SUMMARY | 2024-05-29 19:05 | XMS_ITS | Referral Summary ---
Author Organization [facility] Address [address] [place] [address] Care Team Providers Care Antitank Assault Gunner Name Role Phone Jensen Vilchis MD Primary Care Provider [phone] Social History Tobacco Use Types Packs/Day Years Used Date Smoking Tobacco: Never Assessed Comments Unknown Sex and Gender Information Value Date Recorded Sex Assigned at Not on file Legal Sex Female 18:23 EST Gender Identity Not on file Sexual Orientation Not on file Plan of Treatment [place] [id number] Care Teams Antitank Assault Gunner Relationship Specialty Start Date End Date Jensen Vilchis MD [address] [place] [address] PCP - General 07/07/09
--- OUTSIDE RECORDS SUMMARY | 2024-05-29 19:05 | XMS_ITS | Encounter Summary ---
Author Organization [facility] Address [address] [place] [address] Care Team Providers Care C Iron Worker Name Role Phone Jensen Vilchis MD Primary Care Provider [phone] Encounter Details Date Type Department Care Team (Late st Contact Info) Description 05/15/2006 Results Only [facility] - Maple conversion [address] [place] [address] Ashlee Chadwick, DEFENSIVE LINE COACH [address] [facility],[address] [address] Social History Tobacco Use Types [...] Priority Date/Time Associated Diagnosis Comments CYTOPATHOLOGY Routine 05/15/2006 0:00 EST documented in this encounter Results * CYTOPATHOLOGY (05/15/2006 0:00 EST) Pathology Report: CYTOPATHOLOGY REPORT Reports generated via electronic interface contain original data; however they are lacking the format of the original report. Caution should be taken when reading/interpreti ng unformatted reports. Name: ? NADEGE BUSTAMANTE ? Accession #: ? [id number] : ? 1950 (Age: 55) ??F ?Collect Date: ? 05/15/2006 Location: ? [facility] ? Receive Date: ? 05/17/2006 Provider: ?ASHLEE CHADWICK DEFENSIVE LINE COACH Copy to: ? Specimen/Source: ?ThinPrep Pap Test, Cervix/Endocervix, processed on BERD ThinPrep Imaging System, with manual evaluation Last Menstrual Period: ? Menstrual/Pregnanc y Status: ? Post Menopausal: 2000 Other: ? HPVA - HPV testing requested if ASC-US on the current ThinPrep Pap test. ? SPECIMEN ADEQUACY ? Satisfactory for Evaluation - assessment of transformation zone component not applicable ( e.g. atrophy, vaginal sample, hysterectomy) GENERAL CATEGORIZATION ? Negative for Intraepithelial Lesion or Malignancy ? Document reviewed and electronically signed by: ? Alexa Posada, SCT(ASCP) ? Report Date: ??05/23/2006 13:01 End of Report [facility] 05/15/2006 05/17/2006 us Ashlee Chadwick NP PATHOLOGY ORDERABLES Final R esult [facility] [address] [place] [address] documented in this encounter Visit Diagnoses Not on filedocumented in this encounter Care Teams C Iron Worker Relationship Specialty Start Date End Date Jensen Vilchis MD [address] [place] [id number] PCP - General 07/07/09 documented as of this encounter
--- OUTSIDE RECORDS SUMMARY | 2024-05-29 19:05 | XMS_ITS | Encounter Summary ---
Author Organization [facility] Address [address] [place] [id number] Care Team Providers Care Human Resource Management Instructor Name Role Phone Jensen Vilchis MD Primary Care Provider Encounter Details Date Type Department Care Team (Late st Contact Info) Description 07/25/2010 Results Only [facility] Services - [facility] ([facility]) [address], [place] [id number] Ashlee Arredondo NP [address] [facility],[address] [phone] Social History Tobacco Use Types [...] Priority Date/Time Associated Diagnosis Comments CYTOPATHOLOGY Routine 07/25/2010 0:00 EST documented in this encounter Results * CYTOPATHOLOGY (07/25/2010 0:00 EST) Pathology Report: CYTOPATHOLOGY REPORT ? Reports generated via electronic interface contain original data; ? however they are lacking the format of the original report. ? Caution should be taken when reading/interpreti ng unformatted reports. ? Name: ? NADEGE BUSTAMANTE ? Accession #: ? [id number] ? : ? 1950 (Age: 59) ??F ?Collect Date: ? 07/25/2010 ? Location: ? [facility] ? Receive Date: ? 07/27/2010 ? Provider: ASHLEE W BESCH HAND PACKAGER ? Copy to: ? Final Report ? SPECIMEN ADEQUACY ? Satisfactory for Evaluation ? - assessment of transformation zone component not applicable ( e.g. atrophy, ? vaginal sample, hysterectomy) ? GENERAL CATEGORIZATION ? Negative for Intraepithelial Lesion or Malignancy ? Menstural/Pregnanc y Status: ??Post Menopausal ? Specimen/Source: ??Pap Test, Cervix/Endocervix, ThinPrep Imaging System with ? manual evaluation ? Document reviewed and electronically signed by: ? Kimberly Leong CT(ASCP) ? Report ??Date: 07/28/2010 13:06 ? HPV with Pap Test ? Date Ordered: ? 07/28/2010 ? Status: ?? Signed Out ?Date Complete: ? 08/02/2010 ? By: ??System Interface ? Date Reported: ? 08/02/2010 ? Interpretation ? RESULT: Negative for HPV types 16, 18, 31, 33, 35, 39, 45, 51, 52, ? 56, 58, 59, and 68. ? Comments ? Document reviewed and electronically signed by: ? System Interface ? Report date: 08/02/2010 ? By the signature above, the attending physician certifies that he/she has ? personally conducted a gross and/or microscopic examination of the described ? specimens and rendered or confirmed the above diagnosis. ? End of Report ? [facility] 07/25/2010 07/27/2010 us Ashlee Arredondo HAND PACKAGER PATHOLOGY ORDERABLES Final R esult [facility] [address] [place] [address] documented in this encounter Visit Diagnoses Not on filedocumented in this encounter Care Teams Human Resource Management Instructor Relationship Specialty Start Date End Date Jensen Vilchis MD [address] [place] [phone] PCP - General 07/07/09 documented as of this encounter
--- OUTSIDE RECORDS SUMMARY | 2024-05-29 19:05 | XMS_ITS | Data Portability ---
Author Organization [facility] Address [address] [place] [address] Assessment No assessment recorded. Plan of Treatment Reminders Order Date Submit Date Provider Last Modified By Organization Details Last Modified Time Details Appointments Follow Up 2024 01:00P Elvira ALLEN Not available Not available Not available Pre - Op 40 2024 01:30P Elvira ALLEN Not available Not available Not available Follow Up 30 2024 01:00P Elvira ALLEN Not available Not available Not available Lab CMP, serum or plasma - 1 PST, 1 LAV obtained without issue from (R) 2023 024 [facility] (Registration ), [address] [place] [address] [place], [address], 09/27/2023 14:49:44 HbA1c (hemoglob in A1c), blood - 1 PST, 1 LAV obtained without issue from (R) [email or web address] [facility] (Registration ), [address] [place] [address] [place] [facility] [place], [address], 2023 14:08:58 TSH, serum, reflex free T4 - 1 PST, 1 LAV obtained without issue from (R) 2023 024 [facility] (Registration ), [address] [place] [address] [place], [address], 09/27/2023 16:54:50 hemoglobi n A1C, fingersti ck 2023 024 [facility], [address], [place], [address], 01/17/2024 15:25:30 Referral None recorded. Procedures None recorded. Surgeries None recorded. Imaging None recorded. Medication Orders atorvasta tin 10 mg tablet 2023 024 [email or web address] [facility], [address] [place], [address], 09/27/2023 11:56:39 Invokana 100 mg tablet 2023 024 [facility], [address] [place] [address], [address], [address], 01/23/2024 15:57:30 pantopraz ole 20 mg tablet,de layed release [email or web address], [address] [place] [address], [address], [address], 05/29/2024 13:44:27 triamcino lone acetonide 0.1 % topical cream 2023 024 [facility], [address] [place], [address], 01/17/2024 15:25:30 levothyro xine 75 mcg tablet 2023 024 [email or web address] [facility], [address] [place] [address], [facility], [place], [address], 01/17/2024 15:25:30 Patient TargetsNo targets recorded. Patient Instructions Encounter Date Encounter Id Patient Instructions Last Modified By Organization Details Last Modified Time 09/27/2023 [id number] Nice to see you today Susie! You are doing great with staying healthy and active talked about trying topical rubs for your neck as well as daily stretching and massage. You have a lot of muscle tension causing your pain. If not getting better I can send referral to PT Your BP looks great Labs today and I'll call you with results. [email or web address] Not available 09/27/2023 10:16:30 Reason for Referral Companion Referral for C luciano in skin lesion right lower leg skin lesion growth. originally looked like an eczema flare but has grown abnormally. right lower leg skin lesion growth. originally looked like an eczema flare but has grown abnormally. sending for biopsy/assessment Referring Physician: Stephanie Allen, Family Medicine, Encounter Date: 05/29/2024 Results Created Date Observation Date Name Description Value Unit Range Abnormal Flag Note LastModifiedBy Organization Detail LastModifiedTime 09/27/19 24 09/27/2023 COMPR EHENS NATHAN METAB OLIC PANEL calcium 8.9 mg/dL 8.5-10 .1 normal Not Available [address] [place], [address] 09/27/2023 16:38:01 09/27/19 24 09/27/2023 COMPR EHENS NATHAN METAB OLIC PANEL glucose 127 mg/dL 74-106 high Not Available Lavon velazquez [address] [place], [address] 09/27/2023 16:38:01 09/27/19 24 09/27/2023 COMPR EHENS NATHAN METAB OLIC PANEL BUN 21 mg/dL 7-18 high Not Available Lavon velazquez [address] [place], [address] 09/27/2023 16:38:01 09/27/19 24 09/27/2023 COMPR EHENS NATHAN METAB OLIC PANEL creatinine 0.6 mg/dL 0.55-1 .02 normal Not Available [address] [place], [address] 09/27/2023 16:38:01 09/27/19 24 09/27/2023 COMPR EHENS NATHAN METAB OLIC PANEL estimated GFR 94.13 mL/min /1.73m 2 The eGFR is calcu lated from a serum creat inine using the CKD-E PI 2020 equat ion. Other varia bles requi red for the equat ion are gende r and age; this equat ion does not inclu de a race coeff icien t. This equat ion has simil ar overa ll perfo rmanc e to previ ous equat ions excep t value s may diffe r, in parti cular , in patie nts with highe r value s of eGFR and young er-ag ed adult s. Not Available [address] [place], [address] 09/27/2023 16:38:01 09/27/19 24 09/27/2023 COMPR EHENS NATHAN METAB OLIC PANEL total protein 7.6 g/dL 6.4-8. 2 normal Not Available [address] [place], [address] 09/27/2023 16:38:01 09/27/19 24 09/27/2023 COMPR EHENS NATHAN METAB OLIC PANEL albumin 3.9 g/dL 3.4-5. 0 normal Not Available [address] [place], [address] 09/27/2023 16:38:01 09/27/19 24 09/27/2023 COMPR EHENS NATHAN METAB OLIC PANEL bilirubin, total 0.3 mg/dL 0.2-1. 0 normal Not Available [address] [place], [address] 09/27/2023 16:38:01 09/27/19 24 09/27/2023 COMPR EHENS NATHAN METAB OLIC PANEL alk phos 128 U/L 46-116 high Not Available [address] [place], [address] 09/27/2023 16:38:01 09/27/19 24 09/27/2023 COMPR EHENS NATHAN METAB OLIC PANEL sodium 141 mmol/ L 136-14 5 normal Not Available [address] [place], [address] 09/27/2023 16:38:01 09/27/19 24 09/27/2023 COMPR EHENS NATHAN METAB OLIC PANEL potassium 4.2 mmol/ L 3.5-5. 1 normal Not Available [address] [place], [address] 09/27/2023 16:38:01 09/27/19 24 09/27/2023 COMPR EHENS NATHAN METAB OLIC PANEL chloride 104 mmol/ L 98-107 normal Not Available [address] [place], [address] 09/27/2023 16:38:01 09/27/19 24 09/27/2023 COMPR EHENS NATHAN METAB OLIC PANEL CO2 29.0 mmol/ L 21.0-3 2.0 normal Not Available [address] [place], [address] 09/27/2023 16:38:01 09/27/19 24 09/27/2023 COMPR EHENS NATHAN METAB OLIC PANEL anion gap 8.0 mmol/ L 3-11 normal Not Available [address] [place], [address] 09/27/2023 16:38:01 09/27/19 24 09/27/2023 COMPR EHENS NATHAN METAB OLIC PANEL AST 16 U/L 15-37 normal Resul t verif ied by dilut ion and repea t catia sis Not Available [address] [place], [address] 09/27/2023 16:38:01 09/27/19 24 09/27/2023 COMPR EHENS NATHAN METAB OLIC PANEL ALT 36 U/L 14-59 normal --- 09/26 1630 --- COR RECTE D REPOR T-A LT previ ously repor lorie as: 40 U/L Corre cted Resul ts choudhury d to and read back from ENMA Hollis (RN), [facility] 09/26 at 1630 by LAB.I KANA Resul t verif ied by dilut ion and repea t catia sis Not Available [address] [place], [address] 09/27/2023 16:38:01 09/27/19 24 09/27/2023 TSH (W/RE F FT4) TSH (w/ref FT4) 2.93 uIU/m L 0.36-3 .74 normal Not Available [address] [place], [address] 09/27/2023 14:49:45 09/27/19 24 09/27/2023 HEMOG LOBIN A1C hemoglobin A1C 7.0 % <5.7 high Refer ence Range s <5.7 Xena l 5.7-6 .4% Predi abete s 6.5% or great er Diagn ostic for diabe marisol (if confi rmed) Refer ences : 1. Ameri can Diabe marisol Assoc iatio n. Clas sific ation and Diagn osis of Diabe marisol. Diabe marisol Care 2018; 2(Sup pleme nt 1):S1 3-s28 . Not Available [address] , [place], [address] 09/27/2023 15:06:59 09/27/19 24 09/27/2023 TSH (W/RE F FT4) TSH (w/ref FT4) 2.93 uIU/m L 0.36-3 .74 normal Not Available [address] , [place], [address] 09/27/2023 16:38:02 01/17/20 24 01/17/2024 hemog lobin A1C, finge rstic k hemoglobin A1C 7.1 % <5.7 Not Available [facility] [address] , [place], [address], 01/17/2024 12:25:55 02/03/20 24 10/09/2021 imagi ng/di agnos tic [...] Not Available 02/02 06:40:32 02/03/20 24 04/02/2023 enrique SOTO No observ ation record ed. 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 Cologuar d ordered continue s to decline colonosc opy screenin g. See instruct ions below. Problem Code: Z71.89; Problem Code Type: ICD-10; Not Available [facility] 3 04:32:54 Counseli bri Completed 202101/24/2022 01/24/20 22 - Comments only - Stephanie Allen FRONT OFFICE ADMINISTRATOR - Rozina stapleton on my panel as of today Problem Code: Z71.89; Problem Code Type: ICD-10; Not Available [facility] 3 04:32:54 Cough 62034460 Completed 202103/22/2023 Problem Code: R05.8; Problem Code Type: ICD-10; Not Available [facility] 4 05:34:25 Eczema 05195741 Active 2021 [facility] 4 20:43:44 Atopic dermatit is 21146222 Active 2022 [facility] 4 20:43:40 Loss of appetite 24432558 Completed 202209/27/[address], [place], [address] , [facility] 4 09:57:44 Impacted cerumen in left ear 39582272762 01161 Completed 202201/17/[address], [place], [address] , [facility] 4 12:26:59 Gastroes ophageal reflux disease without esophagi tis 344966290 Active 2004 [facility] 4 20:43:53 Hypothyr oidism 32129283 Active 2010 [facility] 4 20:43:57 Pure hypercho lesterol emia 996652636 Active 2004 [facility] 4 20:44:15 Type 2 diabetes mellitus without complica tion 901572421 Active 2014 [facility] 4 20:44:23 Abdomina l pain 35740322 Completed 202112/08/2021 Problem Code: R10.9; Problem Code Type: ICD-10; Not Available [facility] 3 04:32:56 Blood glucose outside referenc e range 555369284 Completed 201402/13/2023 Problem Code: R73.09; Problem Code Type: ICD-10; Not Available [facility] 3 04:32:56 Screenin g for malignan t neoplasm of breast Completed 201601/17/2024 [address]ER [address] [place] [address] , [place], [address] [facility] 4 12:39:43 Gastroes ophageal reflux disease 903905993 Completed 200402/13/2023 Not Available [facility] 3 04:32:57 Allergy Completed 200505/21/2021 Problem Code: 995.3; Problem Code Type: ICD-9; Not Available [facility] 3 04:32:57 Blood glucose outside referenc e range 756118791 Completed 200611/16/2015 Problem Code: R73.09; Problem Code Type: ICD-10; Not Available [facility] 3 04:32:58 Glucose level outside referenc e range 669448601 Completed 200602/13/2023 Problem Code: 790.29; Problem Code Type: ICD-9; Not Available [facility] 3 04:32:58 Pain in left lower limb 564357384 Completed 201905/21/2021 Problem Code: M79.605; Problem Code Type: ICD-10; Not Available [facility] 3 04:32:59 Repeat prescrip tion monitori ng Completed 202112/08/2021 Problem Code: Z76.0; Problem Code Type: ICD-10; Not Available [facility] 3 04:32:59 Acute pharyngi tis 900371053 Completed 202112/08/2021 Problem Code: J02.9; Problem Code Type: ICD-10; Not Available [facility] 3 04:33:00 Pain of right shoulder joint 28970193273 820645 Completed 201605/21/2021 Problem Code: M25.511; Problem Code Type: ICD-10; Not Available [facility] 3 04:33:00 COVID-19 556940533 Completed 202101/23/2022 Problem Code: U07.1; Problem Code Type: ICD-10; Not Available [facility] 3 04:33:00 Pain 29220065 Completed 202102/13/2023 Problem Code: R52; Problem Code Type: ICD-10; Not Available [facility] 3 04:33:00 Screenin g for malignan t neoplasm of colon Completed 201604/23/2017 Problem Code: Z12.11; Problem Code Type: ICD-10; Not Available [facility] 3 04:33:01 Neck pain 80378387 Active 2023 ALBERT GRANGER [address], [place], [address] , [facility] 4 12:39:55 Problem Notes None recorded. Procedures Surgical History Date Name Laterality Status Provider Name and Address Organization Details Recorded Time 3 Most Recent Mammogram completed ROJAS AARON RN [facility] 01/17/2024 10:37:23 5 Date of Last Colonoscopy completed ROJAS AARON RN [facility] 01/17/2024 10:36:54 Imaging Results Imaging Date Name Status LastModified by [facility] Details LastModified Time 10/09/2021 imaging/diagno stic result completed Information not available 02/03/2024 06:38:49 05/24/2021 DEXA completed Information no t available 02/03/2024 06:39:41 10/09/2021 imaging/diagno stic result completed Information not available 02/03/2024 06:40:14 10/10/2021 imaging/diagno stic result completed Information not available 02/03/2024 06:40:32 04/02/2023 MAMMO, screening completed Information not available 02/03/2024 06:40:35 05/22/2021 MAMMO, screening completed Information not available 02/03/2024 06:40:36 06/17/2019 MAMMO, screening completed Information not available 02/03/2024 06:40:38 Procedure Notes None recorded. Medical Equipment None Reported. Allergies Allergen ID Allergen Name Allergen Category Reaction Reaction Severity Criticality Documentation Date Start Date Code Code System Note Provider Name and Address Organization Details Recorded Time 03635 Prevacid medicatio n rash mild Not available 03/29/20232005 21039 RxNorm ROJAS AARON RN [facility], [facility] 4 09:29:35 06929 soy environme nt,food,m edication rash severe Not available 09/18/20232007 Darren schultz [facility] 4 20:44:50 58009 tree and shrub pollen environme nt,medica tion Not available Not available Not available 09/18/20232007 Darren schultz [facility] 4 20:45:07 16783 weed pollen environme nt,medica tion Not available Not available Not available 09/18/20232007 Darren schultz [facility] 20:45:20 Medications Name Sig Start Date Stop [...] Not Available Not Available Not Available Vitals Date Recorded Body height Body mass index (BMI) Body weight Body temperature Provider Name and Address Organization Details Last Updated DateTime 09/27/2023 150.62 cm 20 kg/m2 03518.96 g 99.1 [degF] ROJAS AARON RN [facility] 09/27/2023 09:34:14 Date Recorded Systolic blood pressure Diastolic blood pressure Provider Name and Address Organization Details Last Updated DateTime 09/27/2023 122 mm[Hg] 78 mm[Hg] ALBERT GRANGER Dr, [facility] [address], [facility] 09/27/2023 10:00:23 Date Recorded Body height Body mass index (BMI) Body weight Body temperature Oxygen saturation Oxygen saturation in Arterial blood by Pulse oximetry Heart rate Respiratory rate Systolic blood pressure Diastolic blood pressure Provider Name and Address Organization Details Last Updated DateTime 150.62 cm 20 kg/m2 40033.5 2 g 98.2 [degF] 97 % 97 % 64 /min 14 /min 110 mm[Hg] 76 mm[Hg] ROJAS AARON RN [facility] 12:15:08 Date Recorded Body height Body mass index (BMI) Body weight Body temperature Oxygen saturation Oxygen saturation in Arterial blood by Pulse oximetry Heart rate Respiratory rate Systolic blood pressure Diastolic blood pressure Provider Name and Address Organization Details Last Updated DateTime 150.62 cm 19 kg/m2 09370.5 6 g 98.4 [degF] 98 % 98 % 68 /min 14 /min 122 mm[Hg] 68 mm[Hg] ROJAS AARON RN [facility] 13:12:43 Social History Question Answer Notes LastModified by Organizat ion Details LastModified Time Tobacco Smoking Status Never Smoker ROJAS AARON RN null, [facility] 09/27/2023 09:30:48 What Was The Date Of [...] Time Mother Family history of Hypercholest erolemia marlene.Tosin Not available 2022 04:00:46 Mother Family history [...] Recorded Time Tdap 2 completed Not Available [facility] 03/29/2023 05:06:23 Tdap 6 completed Not Available [facility] 03/29/2023 05:06:23 zoster live 2 completed Not Available [facility] 03/29/2023 05:06:23 zoster live 9 completed Not Available [facility] 03/29/2023 05:06:24 Pneumococcal conjugate PCV 13 6 completed Not Available [facility] 03/29/2023 05:06:24 Influenza, high-dose, trivalent, PF 8 completed Not Available [facility] 03/29/2023 05:06:24 Influenza, high-dose, trivalent, PF 7 completed Not Available [facility] 03/29/2023 05:06:24 Td(adult) unspecified formulation 4 completed Not Available [facility] 03/29/2023 05:06:25 Influenza, split virus, trivalent, preservative 6 completed Not Available [facility] 03/29/2023 05:06:25 Influenza, split virus, trivalent, preservative 5 completed Not Available [facility] 03/29/2023 05:06:25 Influenza, high-dose, quadrivalent, PF 2 completed Not Available [facility] 03/29/2023 05:06:27 Influenza, high-dose, quadrivalent, PF 0 completed Not Available [facility] 03/29/2023 05:06:27 Influenza, high-dose, quadrivalent, PF 1 completed Not Available [facility] 03/29/2023 05:06:27 COVID-19, mRNA, LNP-S, PF, 100 mcg/0.5mL dose or 50 mcg/0.25mL dose 1 completed Not Available [facility] 03/29/2023 05:06:28 COVID-19, mRNA, LNP-S, PF, 100 mcg/0.5mL dose or 50 mcg/0.25mL dose 1 completed Not Available [facility] 03/29/2023 05:06:28 SARS-COV-2 (COVID-19) vaccine, UNSPECIFIED 1 completed Not Available [facility] 03/29/2023 05:06:28 COVID-19, mRNA, LNP-S, bivalent, PF, 30 mcg/0.3 mL dose 2 completed Not Available [facility] 03/29/2023 05:06:29 pneumococcal polysaccharide PPV23 0 completed Not Available [facility] 03/29/2023 05:06:29 pneumococcal polysaccharide PPV23 4 completed Not Available [facility] 03/29/2023 05:06:30 influenza, unspecified formulation 1 completed Not Available [facility] 03/29/2023 05:06:31 Influenza, high-dose, trivalent, PF 4 completed RAYSA Salas, [facility] 02/27/2024 13:21:46 COVID-19, mRNA, LNP-S, PF, barbra-sucrose, 30 mcg/0.3 mL 4 completed RAYSA Salas, [facility] 02/27/2024 13:21:46 Influenza, high-dose, quadrivalent, PF 3 completed Not Available [facility] 05/31/2023 05:31:40 Past Encounters Encounter ID Performer Location Encounter Start Date Encounter Closed Date Diagnosis/Indication Diagnosis SNOMED-CT Code Diagnosis ICD10 Code Diagnosis Note [id number] STEPHANIE ALLEN [facility] [place] [address] [place] [address] 09/27/2023 09:17:02 09/27/2023 10:40:53 Type 2 diabetes mellitus without complication 823260252 E11.9 Continue Invokana 50mg daily (1/2 a tab of the 100mg). Will check A1c today and make sure in range. Last A1c 6.8% February 2023 Pure hypercholesterolemia 675667937 E78.00 Will get cholestero l panel and see where LDL this may not need this medication depending on lab. Only on 10 mg atorvastat in. Hypothyroidism 44031531 E03.9 continue levothyrox ine 75 mcg daily for now. TSH today. Gastroesop hageal reflux disease without esophagitis 942146507 K21.9 currently on pantoprazo le 40mg daily. will get lab screenings and wean down if possible /see if tolerated Neck pain 28822088 M54.2 Discussed that her neck pain is likely from chronic crafting and having neck tilted forward. Discussed range of motion stretching /exercises , topicals and rubs like CBD salve, icy/hot, aspercream . Heat, stretching . Declines PT today. [id number] STEPHANIE ALLEN [facility] [address] [address] [place] [address] 01/17/2024 11:55:38 01/17/2024 13:00:57 Hypothyroidism 64563712 E03.9 continue levothyrox ine 75 mcg daily. last TSH normal in September. no change in levothyrox ine dosing. Type 2 ariana betes mellitus without complication 589714855 E11.9 Continue Invokana 50mg daily (1/2 a tab of the 100mg). Will check A1c today and make sure in range. Last A1c 6.8% February 2023. A1C 7.0% September 2023. Today is 7,1%. Doing well on the Invokana 50mg daily. No changes today Gastroesop hageal reflux disease without esophagitis 844050821 K21.9 currently on pantoprazo le 40mg. daily. will decrease to 20mg daily and see if tolerated. Neck pain 83364088 M54.2 Discussed that her neck pain is likely from chronic crafting and having neck tilted forward. Discussed range of motion stretching /exercises , topicals and rubs like CBD salve, icy/hot, aspercream . Heat, stretching . Declines PT again today. Gave her info about cervical pillow at [facility] . she will look into this. Eczema 44441104 L30.9 refill of triamcinol one given today for eczema flare ups. [id number] Treva Archer MA [facility] [address] [place] [address] 02/27/2024 13:04:00 02/27/2024 13:16:54 Active or passive immunization 172784306 Z23 [id number] Benita Rosa [facility] [address] [place] [address] 05/29/2024 12:44:23 05/29/2024 14:10:24 Type 2 diabetes mellitus without complication 984955564 E11.9 a1c now 6.8% on the jardiance Hypothyroidism 62782437 E03.9 continue levothyrox ine 75 mcg daily. last TSH normal in September. no change in levothyrox ine dosing. Pure hypercholesterolemia 154485648 E78.00 Will get cholestero l panel and see where LDL this may not need this medication depending on lab. Only on 10 mg atorvastat in. Eczema 57325881 L30.9 refill of triamcinol one given today for eczema flare ups. Gastroesop hageal reflux disease without esophagitis 996592824 K21.9 no longer on pantoprazo le 20mg. is on a supplement called enzyme support with papaya extract. no longer with heartburn. also has magnesium in it. sleeping better. but is losing weight. so she wants to switch back to pantoprazo le Change in skin lesion 39 9727551 L98.9 right lower leg. concerning lesion ? scar tissue irritation vs. lesion of concern. will send for biopsy/meliza matology assessment up here at [facility] as she does not wish to drive to [email or web address] [place]. Health Concerns Section Related Observation LastModified by Organization Detai ls LastModified Time None Recorded Concern Status LastModified by Organization Details LastModified Time None Recorded Advance Directives Directive None Recorded Payers Encounter Date Sequence Insurance Name Policy Number Policy Schmidt Covered Member ID Schmidt Member ID Guarantor Name 09/27/2023 2 FOR LIFE () Susie Orozco [employer] [id number] Susie Orozco [employer] 09/27/2023 1 [place] [employer] Sandi S Redznak [id number] Susie S [employer] 01/17/2024 2 FOR LIFE () Susie S [employer] [id number] Susie S [employer] 01/17/2024 1 [place] [employer] Sandi S Redznak [id number] Ussie S Redznak 02/27/2024 2 FOR LIFE () Susie S Red[employer]ak [id number] Susie S Red[employer]ak 02/27/2024 1 [place] [employer] Sandi S [employer]ak [id number] Susie S [employer] Notes Date Note Type Note Provider Name and Address Organization Details Recorded Time 09/27/2023 text/html Susie is a pleasant 72-year-old female here today for 6-month check-in type 2 diabetes, hyperlipidemia, hypothyroidism, GERD. New complaint of neck pain that has been around since May. She does a lot of crafting and sitting with her neck tilted forward. Has tried Aspercreme and is somewhat helpful. Has tried heat and ice and both are somewhat helpful. Mostly on left side of her neck and into her trapezius. Posterior muscle. Denies any numbness or tingling or weakness in limbs.Blood pressure under good control. Currently on levothyroxine 75 mcg daily for hypothyroidism. Due for lab check. Currently on Invokana 50 mg a day for type 2 diabetes. Atorvastatin 10 mg for hyperlipidemia. Pantoprazole 40 mg a day for GERD reflux. Due for screening labs. Started taking some whey protein as she does not want to lose weight. Has not been losing weight but does not have much of an appetite and this has been true for a couple of years now. Have done workup in the recent past and no abnormalities on CBC or other blood work. Appetite was much worse on the Farxiga so he had switched her to Invokana and it is better on this. Could not tolerate metformin.Fasting Blood glucose averages around 120 STEPHANIE ALLEN, ALBERT [address], [place], [phone], [facility]. 2023 01:51:19 01/17/2024 text/html Susie is a pleasant 73 year old female here today for 3 month follow up check in on chronic conditions.Patient reports having cataract surgery scheduled for February on her left eye. 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 She has had the cataract for years, but her doctor recommends removal to improve her vision. Ms. Hernadez has been experiencing neck pain since May, which she believes may be due to arthritis. The pain is located on the left side of her neck and is described as aching and tense. She has tried various remedies, including a natural cream from the [employer], an electric heated neck wrap, Aspercreme, and Icy Hot. These treatments provide some relief, but the pain returns. The patient has lost 2 pounds and attributes this to increased activity, including walking for 30 minutes daily and staying active in summer. She reports no hip pain during walking, but experiences knee pain. She uses Aspercreme to alleviate the knee pain and believes that being active helps with her arthritis. Ms. Hernadez's A1C is 7.1% today, slightly increased from her previous result of 7.0 09/27/23. She has not made significant changes to her diet, occasionally indulging in ice cream. She is aware of how certain foods affect her blood sugar levels and makes her own snacks to avoid added sugars. The patient reports that her reflux has improved since starting Pantoprazole 40 mg daily. She has not tried reducing the dosage to 20 mg. She avoids spicy foods to minimize reflux symptoms. Ms. Hernadez has been using an alvin called [employer] to scan groceries and check their health ratings. She is conscious of her diet and avoids processed foods. She also avoids canned foods due to their high sodium content. The patient is currently taking Levothyroxine 75 mcg daily and is concerned about the cost of the medication. She is considering switching pharmacies to find a more affordable option. reports no chest pain or tightness and her heart rate is in the 60s. She has no anterior neck pain or swelling and no swallowing difficulty. no shortness of breath. no dizziness. STEPHANIE ALLEN, ALBERT [address], [place], [address], [facility]. 02/24/2024 22:23:17 OBGyn Episode No OBEpisode recorded.
--- OUTSIDE RECORDS SUMMARY | 2024-05-29 19:05 | XMS_ITS | Encounter Summary ---
Author Organization [facility] Address [address] [place] [address] Care Team Providers Care Road Machine Runner Name Role Phone Jensen Vilchis MD Primary Care Provider [phone] Encounter Details Date Type Department Care Team (Late st Contact Info) Description 03/05/2000 Results Only [facility] [address] [place] [address] Dina Felton MD [address] [place] [phone] Social History Tobacco Use Types Packs/Day Years [...] Priority Date/Time Associated Diagnosis Comments CYTOPATHOLOGY Routine 03/05/2000 0:00 EDT documented in this encounter Results * CYTOPATHOLOGY (03/05/2000 0:00 EDT) Pathology Report: CYTOPATHOLOGY REPORT Reports generated via electronic interface contain original data; however they are lacking the format of the original report. Caution should be taken when reading/interpreti ng unformatted reports. Name: ? NADEGE BUSTAMANTE ? Accession #: ? [id number] : ? 1950 (Age: 49) ??F ?Collect Date: ? 03/05/2000 Location: ? [facility] ? Receive Date: ? 03/07/2000 Provider: ?DINA FELTON TEACHER HEARING IMPAIRED Copy to: ? Specimen/Source: ?Conventional Pap Test, Cervix/Endocervix Last Menstrual Period: ? Hormonal/Contracep tive Status: ? Yes: [place] ? SPECIMEN ADEQUACY ? Satisfactory for evaluation. GENERAL CATEGORIZATION ? Within Normal Limits ? Document reviewed and electronically signed by: ? WELLINGTON Gracia(ASCP) ? Report Date: ??03/13/2000 09:53 End of Report LG GILLIAM 03/05/2000 03/07/2000 us Dina Felton MD PATHOLOGY ORDERABLES Final Re sult LG PEREZ [facility] [address] [place] [address] documented in this encounter Visit Diagnoses Not on filedocumented in this encounter Care Teams Road Machine Runner Relationship Specialty Start Date End Date Jensen Vilchis MD [address] [place] [phone] PCP - General 07/07/09 documented as of this encounter
[2024-05-29 19:28] LABS: ALT 39 U/L (14-59); AST 30 U/L (15-37); Albumin 3.8 g/dL (3.4-5.0); Alkaline Phosphatase 104 U/L (46-116); Anion Gap 7.1 mmol/L (3-11); BUN 28 mg/dL (7-18); CO2 30.9 mmol/L (21.0-32.0); CREATININE 0.7 mg/dL (0.55-1.02); Calcium 9.1 mg/dL (8.5-10.1); Chloride 107 mmol/L (98-107); Estimated GFR 90.14 (mL/min/1.73m2); Glucose 197 mg/dL (74-106); Sodium 145 mmol/L (136-145); TSH 2.08 uIU/mL (0.36-3.74); Total Protein 7.3 g/dL (6.4-8.2)
[2024-05-29 19:42] LABS: COMMENT (LAB VIEW ONLY) 27.36 mg/dL; Microalb ug/mg Crea 15.4 ug/mg Cr
[2024-05-29 20:25] LABS: Calculated LDL 91 mg/dL (<100); Cholesterol 198 mg/dL (<200); HDL Cholesterol 62 mg/dL (40-60); Triglyceride 227 mg/dL (<150)
== END 2024-05-29 19:04 | disposition home or self-care (01) ==
LOC: NCHCN 19:03
PROVIDERS: PCP Nurse Practitioner Family; Visit Provider Nurse Practitioner Family
DX: E11.9 Type 2 diabetes mellitus without complications (principal)
CPT/HCPCS: 80053; 80061; 82043; 82570; 84439; 84443

== ENCOUNTER 2024-06-05 13:36 | Outpatient (REF) | payer MEDICARE, OTHER, SELFPAY ==
--- NOTE | 2024-06-05 08:30 | SKI_PTH ---
PATIENT: Susie Hernadez LOC: [facility] U#:[id number] AGE/SX: 73/F ROOM: RE06/05/[address]: Sincere Estrada DO : 1950 BED: DIS: 06/05/2024 SPEC #: [id number] RECD: 06/05/24 17:41 STATUS: JHONNY REQ #: [id number] CLINT: 06/05/24 08:[address]: Sincere Estrada DEPT: Surgical Specimen RECD BY: Betty Morillo ENTERED: 06/05/24 17:41 SP TYPE: SHANNAN GONZALEZ DR: Stephanie Allen Tissues: 1 - SKIN BIOPSY(SHAVE/PUNCH) Procedures: SKIN LEVEL 4 Comments: [id number]
== END 2024-06-05 13:37 | disposition home or self-care (01) ==
LOC: LBN 13:36
PROVIDERS: PCP Nurse Practitioner Family; Visit Provider Otolaryngology Otolaryngology/Facial Plastic Surgery
DX: D49.2 Neoplasm of unspecified behavior of bone, soft tissue, and skin (principal); L98.6 Other infiltrative disorders of the skin and subcutaneous tissue; Z12.83 Encounter for screening for malignant neoplasm of skin; E11.9 Type 2 diabetes mellitus without complications
CPT/HCPCS: 88305

== ENCOUNTER 2024-11-13 07:14 | Day surgery (SDC) | payer MEDICARE, OTHER, SELFPAY ==
--- NOTE | 2024-11-12 18:48 | W.PREOPHP ---
Assessment and Plan Assessment and plan (1) Cortical age-related cataract, left eye: Status: Acute Assessment and plan: Assessment: Visually significant cataract left eye. Plan: Cataract extraction with intraocular lens implant left eye followed by right eye (2) Nuclear age-related cataract, left eye: Status: Acute Assessment and plan: Assessment: Visually significant cataract left eye. Plan: Cataract extraction with intraocular lens implant left eye followed by right eye (3) Cortical age-related cataract, right eye: Status: Acute Assessment and plan: Assessment: Visually significant cataract right eye. Plan: Cataract extraction with intraocular lens implant left eye followed by right eye (4) Nuclear age-related cataract, right eye: Status: Acute Assessment and plan: Assessment: Visually significant cataract right eye. Plan: Cataract extraction with intraocular lens implant left eye followed by right eye History of Present Illness History of Present Illness Chief Complaint: Progressive decreased vision both eyes Narrative: The patient is a 74-year-old lady with history of progressive decreased vision in both eyes at both distance and near. 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 She no longer drives at night due to glare and difficulty seeing in the dark. She has a history of amblyopia of the left eye with longstanding poor vision, as well as a macular dystrophy. Review of Systems All systems reviewed & are unremarkable except as noted in HPI and below PFSH All Active Problems Cortical age-related cataract, left eye (Acute) Nuclear age-related cataract, left eye (Acute) Cortical age-related cataract, right eye (Acute) Nuclear age-related cataract, right eye (Acute) Lichen sclerosus (Acute) Abnormal skin growth (Acute) Screening for malignant neoplasm of skin (Acute) Neck pain (Acute) Changing skin lesion (Acute) Abdominal pain, acute (Acute) GERD (gastroesophageal reflux disease) (Chronic) Medical History H/O mammogram 04/02/2023 Ganglion cyst Scleroderma Eczema Atopic dermatitis Hypercholesterolemia Hypothyroid Diabetes type 2, controlled diet controlled per pt. [place] Surgical History H/O colonoscopy 10/23/2004 H/O esophagogastroduodenoscopy (~11/06/21) Family History Mother Hypertension Hypercholesterolemia Father Diabetes Brother Diabetes Paternal Uncle Heart disease Social History Smoking/Tobacco Use Status: Never Smoking risk assessment performed?: Yes Alcohol Intake: never Drug use: Never Substance use type: does not use Housing: house Do you feel safe at home: Yes Do you feel safe in your relationship?: Yes Meds Allergies and Home Medications Allergies Allergy/AdvReac Type Severity Reaction Status Date / Time omeprazole (From Prilosec) Allergy Severe Swelling/Ed Verified 11/13/24 07:34 marielena soy Allergy Intermediate Skin Rash Verified 11/13/24 07:34 lansoprazole (From Prevacid) Allergy Mild Skin Rash Verified 11/13/24 07:34 weed pollen Allergy Mild Other (See Verified 11/13/24 07:34 Comment) tree and shrub pollen Allergy Other (See Verified 11/13/24 07:34 Comment) Home Medications ?Medication ?Instructions ?Recorded ?Confirmed ?Type atorvastatin 10 mg tablet 10 mg PO DAILY 10/09/21 11/13/24 History levothyroxine 25 mcg tablet 25 mcg PO DAILY 10/09/21 11/13/24 History multivitamin 1 tab PO DAILY 10/09/21 11/13/24 History omega-3 fatty acids-fish oil 340 1 cap PO DAILY 10/17/21 11/13/24 History mg-1,000 mg capsule (Fish Oil) pantoprazole 40 mg tablet,delayed 40 mg PO BID #60 tabs 12/05/21 11/13/24 Rx release calcium acetate 667 mg tablet 667 mg PO ONCE 06/04/24 11/13/24 History empagliflozin 10 mg tablet 10 mg PO DAILY 06/04/24 11/13/24 History (Jardiance) triamcinolone acetonide 0.1 % 1 applic topical DAILY 06/04/24 11/13/24 History topical cream mupirocin 2 % topical ointment 1 applic topical BID #22 grams 06/05/24 11/13/24 Rx collagen,hydrolysate 500 mg-biotin 1 cap PO DAILY 11/12/24 11/13/24 History 800 mcg-ascorbic acid 50 mg capsule (Collagen 1500 Plus C) Exam Eyes Other: Most recent ophthalmic examination is significant for uncorrected visual acuity of 20/30 OD, 20/100 OS. Extraocular Henry is normal. Intraocular pressure is 15 OD, 14 OS. Slit-lamp examination is significant for mild cortical with moderate nuclear cataract OU. The anterior segment is otherwise unremarkable. Funduscopic examination shows disc cupping of 0.4 OU with pigmentary changes in the left macula. There is a small chorioretinal scar along the superior temporal arcade in the right eye. The remainder of the vitreous, vascular trauma vasculature, and peripheral retina are normal. Resp Auscultation: clear to auscultation bilaterally Cardio Rate: regular rate Rhythm: regular rhythm
--- NOTE | 2024-11-13 06:33 | W.ANESPRE ---
General Info Date of Service Date Performed: 11/13/24 Height: 4 ft 11.75 in Weight: 43.545 kg Body Mass Index (BMI): 18.8 Surgical Procedure: Operation Date: 11/13/24 09:10 Proposed Procedure Side Surgeon p Cataract Extraction with IOL Implant Left Shlomo Lopez MD Meds Allergies and Home Medications Allergies Allergy/AdvReac Type Severity Reaction Status Date / Time omeprazole (From Prilosec) Allergy Severe Swelling/Ed Verified 11/13/24 07:34 marielena soy Allergy Intermediate Skin Rash Verified 11/13/24 07:34 lansoprazole (From Prevacid) Allergy Mild Skin Rash Verified 11/13/24 07:34 weed pollen Allergy Mild Other (See Verified 11/13/24 07:34 Comment) tree and shrub pollen Allergy Other (See Verified 11/13/24 07:34 Comment) Home Medication ?Medication ?Instructions ?Recorded atorvastatin 10 mg tablet 10 mg PO DAILY 10/09/21 levothyroxine 25 mcg tablet 25 mcg PO DAILY 10/09/21 multivitamin 1 tab PO DAILY 10/09/21 omega-3 fatty acids-fish oil 340 1 cap PO DAILY 10/17/21 mg-1,000 mg capsule (Fish Oil) pantoprazole 40 mg tablet,delayed 40 mg PO BID #60 tabs 12/05/21 release calcium acetate 667 mg tablet 667 mg PO ONCE 06/04/24 empagliflozin 10 mg tablet 10 mg PO DAILY 06/04/24 (Jardiance) triamcinolone acetonide 0.1 % 1 applic topical DAILY 06/04/24 topical cream mupirocin 2 % topical ointment 1 applic topical BID #22 grams 06/05/24 collagen,hydrolysate 500 mg-biotin 1 cap PO DAILY 11/12/24 800 mcg-ascorbic acid 50 mg capsule (Collagen 1500 Plus C) Current Visit Medications: Current Medications Generic Name Dose Route Start Last Admin Trade Name Freq PRN Reason Stop Dose Admin Acetaminophen 1,000 mg 11/13/24 06:00 Acetaminophen 500 Mg Tab PO 12/13/24 05:59 Q4H PRN PRN Balanced Salt Solution 500 ml 11/13/24 06:00 Balanced Salt Soln.-Plus 500 Ml Bag OP 12/13/24 05:59 DIRECTED [facility] Miscellaneous Medication 0 ml 11/13/24 06:00 Prednisolone 1%, Moxifloxacin 0.5%, Bromfenac 0.09% 5.6ml Btl OS 12/13/24 05:59 DIRECTED [facility] Miscellaneous Medication 0 ml 11/13/24 06:00 Tropicam./Phenyleph. (1/2.5%) 5 Ml Btl OS 12/13/24 05:59 DIRECTED [facility] Tetracaine HCl 0 ml 11/13/24 06:00 Tetracaine 0.5% 4 Ml Btl OS 12/13/24 05:59 DIRECTED [facility] PFSH Active Problems Active Problems: Problem Status Onset Code Cortical age-related cataract, left eye Acute H25.012 Nuclear age-related cataract, left eye Acute H25.12 Cortical age-related cataract, right eye Acute H25.011 Nuclear age-related cataract, right eye Acute H25.11 Lichen sclerosus Acute L90.0 Abnormal skin growth Acute D49.2 Screening for malignant neoplasm of skin Acute Z12.83 Neck pain Acute M54.2 Changing skin lesion Acute L98.9 Abdominal pain, acute Acute R10.9 GERD (gastroesophageal reflux disease) Chronic K21.9 Medical History Medical History H/O mammogram 04/02/2023 Ganglion cyst Scleroderma Eczema Atopic dermatitis Hypercholesterolemia Hypothyroid Diabetes type 2, controlled diet controlled per pt. [place] Surgical History Surgical History H/O colonoscopy 10/23/2004 H/O esophagogastroduodenoscopy (~11/06/21) Tobacco Smoking/Tobacco Use Status: Never Alcohol Alcohol Intake: never Substance Use Substance use: Never Substance use type: does not use Vital Signs and Lab Results Vital Signs Most Recent Vital Signs in EMR: Temp Pulse Resp BP Pulse Ox 36.6 C 82 17 140/98 H 97 11/13/24 07:38 11/13/24 07:38 11/13/24 07:38 11/13/24 07:38 11/13/24 07:38 Imaging and Studies Imaging and Studies Study information below may be from another EMR and interpreted by another provider. Please see original notes in EMR for more complete details. EKG Summary: DATE/TIME OF SERVICE: 10/09/212015 : 1951PERFORMING LOCATION: ER APPROVED REPORT Exam: Resting ECG Reason for Exam: vomiting Patient Location: E HR:56 bpm ECG Measurements Heart Rate 56 AXIS OK 156 P 60 QRSd 93 QRS 14 QT 440 T64 QTc 427 Conclusion Sinus bradycardia...rate< 60 Anesthesia Assessment and Plan Anesthesia History Personal History: No History of Anesthesia Complications Family History: No Family History of Anesthesia Complications Exercise Tolerance Exercise Tolerance: Metabolic Equivalents>4 Cardiac & Pulmonary Exam Cardiac Exam: Normal S1/S2 Heart Sounds Pulmonary Exam: Clear Bilateral Breath Sounds Implantable Cardiac Device Does patient have a Pacemaker or an ICD?: No Airway Exam Known Difficult Airway: No Mallampati Class: 2 Mouth Opening: Normal (> 3cm) Thyromental Distance: Greater than 3 cm Neck Range of Motion: Full ROM Neck Circumference: Normal Teeth Condition: Normal Dentition ASA Classification ASA Score: ASA 2 Emergency Case?: No NPO Status NPO Status: NPO Clears >2 hours, Solids >8 hours Anesthesia Plan Resuscitation Status: Full Code Anesthesia Technique: MAC Anesthesia Airway Planned: Natural Airway Monitors Used: Standard Monitors Preoperative Comments:: 74 yo female for cataract removal. No MKO Sig PMHx: GERD (pantoprazole), hypothyroid (on replacement), scleroderma, neck pain, DM2 (jardiance). never smoker. Previous Anes: - EGD, prop, natural airway, no issues.
[2024-11-13 07:38] VITALS: BP 140/98; PULSE 82; RESP 17; TEMP 36.6; O2SAT 97
[2024-11-13] MEDS: Tropicam./Phenyleph. (1/2.5%) 5 ML BTL OS ×3 (07:45→07:55)
[2024-11-13 08:00] VITALS: BMI 18.8
[2024-11-13] MEDS: Tetracaine 0.5% 4 ML BTL OS (09:01)
[2024-11-13] MEDS: Povidone-Iodine Ophth 30 ML BTL (09:05)
[2024-11-13] MEDS: Balanced Salt Soln.-PLUS 500 ML BAG OP (09:05)
[2024-11-13] MEDS: Duovisc Viscoelastic System EACH 1 EACH ×2 (09:05→09:28)
[2024-11-13] MEDS: Lidocaine 1% Pres-Free 5 ML VIAL (09:13)
[2024-11-13] MEDS: Moxifloxacin-PF 1 MG/ML VIAL (09:15)
[2024-11-13] MEDS: Phenylephrine/Lidocaine (15/10) MG/ML 1 ML VIAL (09:18)
[2024-11-13] MEDS: Prednisolone 1%, Moxifloxacin 0.5%, Bromfenac 0.09% 5.6ML BTL OS (09:31)
[2024-11-13 09:55] VITALS: BP 141/83; PULSE 73; RESP 16; TEMP 36.2; O2SAT 96
--- NOTE | 2024-11-13 09:57 | W.PM.DSUDISC ---
Date of service: 11/13/24 Discharge Plan Disposition Patient Disposition: Home Discharge Details Attending Provider: Shlomo Lopez Primary Care Provider: Stephanie Allen Home Meds and New Rx's Prescriptions: No Action Fish Oil 340-1,000 mg capsule 1 cap PO DAILY pantoprazole 40 mg tablet,delayed release (DR/EC) 40 mg PO BID Qty: 60 2RF mupirocin 2 % ointment 1 applic topical BID Qty: 22 0RF calcium acetate 667 mg tablet 667 mg PO ONCE Jardiance 10 mg tablet 10 mg PO DAILY triamcinolone acetonide 0.1 % cream 1 applic topical DAILY multivitamin Tablet 1 tab PO DAILY atorvastatin 10 mg Tablet 10 mg PO DAILY levothyroxine 25 mcg Tablet 25 mcg PO DAILY Collagen 1500 Plus C 500 mg-800 mcg- 50 mg capsule 1 cap PO DAILY Discharge Instructions Stand Alone Forms: DSU Post-Op Cataract, Kimberlyn Dobson (DSU) Discharge Orders Discharge Orders: Discharge Order (Routine); Ordered 11/13/24 Ordered By: Shlomo Lopez DS: Diagnosis Discharge Diagnosis (1) Cortical age-related cataract, left eye: Status: Resolved (2) Nuclear age-related cataract, left eye: Status: Resolved
--- NOTE | 2024-11-13 10:02 | ROE_ITS ---
Operative Note Operative Note PRE-OP DIAGNOSIS: Nuclear/cortical cataract, left eye POST-OP DIAGNOSIS: same PROCEDURE: Cataract extraction using phacoemulsification with intraocular lens implant, left eye SURGEON: Shlomo Lopez ANESTHESIA TYPE: Local By Surgeon and MAC Refer to Anesthesia Record PATHOLOGY: none sent COMPLICATIONS: None Patient was transported to: same day Patient's condition: stable Implants: Dg Clareon [id number] Indications: Progressive decreased vision due to cataract, left eye Procedure Description: CATARACT SURGERY OPERATIVE REPORT PREOPERATIVE DIAGNOSIS: Nuclear/cortical cataract, left eye POSTOPERATIVE DIAGNOSIS: Same OPERATION: Cataract extraction using phacoemulsification with posterior chamber intraocular lens implant, left eye. IOL: IOL Composition Mixer/Model: Dg Clareon [id number] IOL Power: + 24.0 diopters IOL Serial Number: [id number] Optic Diameter: 6.0mm Haptic/Overall Diameter: 13.0mm PHACO INFO: Dg [employer]ion Vision System with OZil and Active [employer]uidics Cumulative Dispersed Energy (CDE): 8.10 seconds SURGEON: Shlomo Lopez MD, TROY ANESTHESIA: Monitored Anesthesia Care (MAC), with local sub-tenon's anesthetic infiltration COMPLICATIONS: None SPECIMENS: None INDICATIONS FOR PROCEDURE: The patient is a 74-year-old lady with history of diminished visual acuity in her right eye secondary to the development of nuclear/cortical cataract. She is significantly symptomatic that she desires cataract surgery in attempt to improve and maximize her vision. See office notes for detailed information. PROCEDURE: The correct surgical eye was identified and marked as the left eye and the pupil was dilated in the preoperative area using mydriatics and cycloplegics. The dilated pupil size was 8.0 mm. The patient elected to proceed without oral sedation. The patient was brought to the operating room where cardiopulmonary monitoring was instituted and surgical time-out was performed, confirming the correct operative eye and IOL power. Topical anesthesia was administered and ophthalmic povidone-iodine 5% was instilled into the conjunctival fornices. The tk-ocular area was prepped with Betadine 10% solution and draped in the usual sterile fashion for intraocular surgery, including an aperture drape. A Tegaderm transparent film dressing was cut in half and used to cover the lashes and lid margins. Care was taken to sequester the lashes and lid margins under the Tegaderm dressing. A lid speculum was placed between the lids of the operative eye and the Dg [employer] Revalia operating microscope was maneuvered into position. Raine scissors were then used to make a conjunctival buttonhole approximately 6mm posterior to the limbus in the inferonasal quadrant. Blunt dissection was carried out to expose bare sclera, and a blunt-tipped sub-tenon?s anesthesia cannula was introduced and passed posteriorly along the globe where non- preserved plain lidocaine was injected into posterior sub-Tenon?s space. A sideport knife was used to make a paracentesis port. Intraocular phenylephrine/lidocaine was injected into the anterior chamber. The anterior chamber was then filled with viscoelastic. A keratome knife was used construct a two-plane clear corneal tunnel extending 2.0mm into clear cornea. A flap was raised on the anterior capsule and capsulorhexis forceps were used to complete a continuous curvilinear capsulorhexis of 5.0 mm. Balanced salt solution was then used to perform cortical cleaving hy drodissection and nuclear hydrodelineation until the lens could be freely rotated within the capsular bag. The lens nucleus was then disassembled and removed within the capsular bag and iris plane using phacoemulsification. Residual cortical material was removed using the irrigation/aspiration handpiece. The posterior capsule was carefully polished to remove as much residual lens epithelial cells as safely possible. The capsular bag was then inflated and the anterior chamber deepened with viscoelastic. The lens implant described above was inserted into the capsular bag using the Dg [employer] Injector. A Kuglen hook was used to dial the IOL into position. At this point it was discovered that the IOL opened onto the field was of incorrect power, 25.5 diopters. The capsular bag and anterior chamber were filled with dispersive viscoelastic, and the IOL was rotated into the anterior chamber. The correct power IOL was then inserted into the capsular bag underneath the existing IOL, and rotated into position without difficulty. The sacral incision was enlarged slightly, and MST micro IOL cutting scissors and graspers were used to cut the IOL in half in the anterior chamber. Each half was then carefully removed from the eye. Residual viscoelastic was then removed first from posterior to the IOL, then from the anterior chamber using the I/A handpiece. Extensive irrigation/a spiration was undertaken to remove all this dispersive viscoelastic. Cohesive viscoelastic was then injected into the capsular bag and into the anterior chamber to force out any remaining dispersive viscoelastic. The cohesive viscoelastic was then removed using irrigation/aspiration. The lens implant was noted to center nicely within the capsular bag. The incisions were stromally hydrated, and the anterior chamber was reformed using BSS. Miostat was then injected into the anterior chamber for postoperative intraocular pressure control. Then 0.5cc of moxifloxacin 1.0mg/ml were injected into the capsular bag and anterior chamber. The incisions were checked with a Weck spear and found to be secure. Several drops of ophthalmic povidone-iodine 5% were then applied to the eye followed by two drops of combination steroid/NSAID/antibiotic solution. The drapes were removed and a clear plastic protective eye shield was placed over the eye. The patient was then returned to Same Day Surgery in stable condition. Date of Procedure: 11/13/24
--- NOTE | 2024-11-13 15:47 | W.ANESPOSTOP ---
Postoperative Evaluation Date, Time and Location Date Performed: 11/13/24 Time Performed: 09:55 Patient Location: Day Surgery Unit Vital Signs Most Recent Imported Vital Signs: Most Recent Vital Signs Temp Pulse Resp BP Pulse Ox 36.2 C L 73 16 141/83 H 96 11/13/24 09:55 11/13/24 09:55 11/13/24 09:55 11/13/24 09:55 11/13/24 09:55 Pain Score Most Recent Pain Score: Most Recent Pain Score Pain Level 0 11/13/24 09:55 Assessment Mental Status: Awake (Alert & Oriented to Patient Baseline) Airway and Respiratory Function: Patent airway with normal (patient baseline) respiratory exam Cardiovascular Function: Hemodynamically Stable Hydration Status: Adequately Hydrated Nausea & Vomiting: No Nausea or Vomiting Pain: Pt. Denies Any Pain Peripheral Nerve Block: Patient did not receive a nerve block
== END 2024-11-13 10:13 | disposition home or self-care (01) ==
PROVIDERS: PCP Nurse Practitioner Family; Visit Provider Ophthalmology
PROC: (CPT 66984; principal; 2024-11-13 09:00)
DX: H25.012 Cortical age-related cataract, left eye (principal); H25.12 Age-related nuclear cataract, left eye; K21.9 Gastro-esophageal reflux disease without esophagitis; E11.9 Type 2 diabetes mellitus without complications
CPT/HCPCS: 66984; 00123; V2632; J2003

== ENCOUNTER 2024-11-27 12:03 | Day surgery (SDC) | payer MEDICARE, OTHER, SELFPAY | END 2024-11-27 12:04 | disposition home or self-care (01) | LOC: SUR 01-13 12:04 | PROVIDERS: PCP Nurse Practitioner Family; Visit Provider Ophthalmology | DX: Z53.29 Procedure and treatment not carried out because of patient's decision for other reasons (principal) ==

== ENCOUNTER 2025-01-02 09:29 | Emergency (ER) | payer MEDICARE, OTHER, SELFPAY ==
[2025-01-02] VITALS (77 sets, daily range): BP systolic 127–190; BP diastolic 57–102; PULSE 56–66; RESP 5–30; TEMP 36.1–36.5; O2SAT 94–100
--- NOTE | 2025-01-02 09:30 | RT.EKG_ITS ---
APPROVED REPORT Exam: Resting ECG Reason for Exam: dizzy Patient Location: E HR:57 bpm ECG Measurements Heart Rate 57 AXIS MN 173 P 22 QRSd 90 QRS 16 QT 431 T 57 QTc 420 Conclusion Sinus bradycardia...rate< 60 No STEMI
--- NOTE | 2025-01-02 09:39 | W.ED.GENAD ---
Discharge Plan Disposition Patient Disposition: Home Discharge Details Clinical Impression: Dizziness Primary Care Provider: Stephanie Allen ED Provider: Balta Rowe Home Meds and New Rx's Prescriptions: No Action Fish Oil 340-1,000 mg capsule 1 cap PO DAILY pantoprazole 40 mg tablet,delayed release (DR/EC) 40 mg PO BID Qty: 60 2RF calcium acetate 667 mg tablet 667 mg PO ONCE Jardiance 10 mg tablet 10 mg PO DAILY multivitamin Tablet 1 tab PO DAILY atorvastatin 10 mg Tablet 10 mg PO DAILY levothyroxine 25 mcg Tablet 25 mcg PO DAILY Collagen 1500 Plus C 500 mg-800 mcg- 50 mg capsule 1 cap PO DAILY mupirocin 2 % ointment 1 applic TOPICAL BID PRN Patient Comments: APPLY TO AFFECTED AREA(S) TWO TIMES A DAY Discharge Instructions Instructions: Labyrinthitis, Dizziness, Adult ED, Vertigo ED Additional Instructions: Please follow-up with your primary care provider regarding your visit to the emergency department today. Be sure to discuss results of all test performed here today to include radiology, and laboratory testing as well as results for any pending cultures. Should your symptoms worsen, or if you develop new concerning symptoms, please return immediately emergency department for further evaluation. A referral to ear nose and throat clinic was made on your behalf during your visit here today. Should you have any difficulty contacting the clinic, please be sure to follow-up with your primary care provider or return to emergency department. HPI General Date/Time Provider Initiated Documentation: 01/02/25 09:39. HPI Narrative: The patient is a 74-year-old female with prediabetes, presenting with acute on chronic vertigo. Following cataract surgery on 11/13/2024, the patient experienced mild dizziness. Approximately two weeks postoperatively, she developed severe vertigo, resulting in bed confinement. She discontinued her medication due to exacerbation of dizziness and found vestibular exercises beneficial. Four weeks later, she experienced another episode of dizziness, albeit less severe. She continues to perform vestibular exercises and sought advice regarding potential otologic causes. She used an earwax softener with partial relief. Two weeks ago, her ears were cleaned by her PCP, and she was referred to an elementary school director, awaiting further contact. This morning, she awoke with dizziness, performed exercises twice without improvement. She reports no room spinning but feels off balance while ambulating, with persistent dizziness at rest, not exacerbated by movement. She maintains a daily walking routine and suspects her medication may be contributing to her symptoms. She denies ear pressure, changes in hearing, or otalgia. She has long-term tinnitus and was advised to use oil drops. She reports no recent illnesses and had COVID-19 four years ago, which was treated. She notes recent weight fluctuation from 96 to 97 pounds. Meclizine was prescribed but worsened her symptoms. The patient has prediabetes and is on Jardiance. She has no known renal, pulmonary, cardiac, or hepatic issues. She denies smoking and alcohol consumption. PAST SURGICAL HISTORY: Cataract surgery on 11/13/2024. Related Data Home Medications ?Medication ?Instructions ?Recorded ?Confirmed atorvastatin 10 mg tablet 10 mg PO DAILY 10/09/21 01/02/25 levothyroxine 25 mcg tablet 25 mcg PO DAILY 10/09/21 01/02/25 multivitamin 1 tab PO DAILY 10/09/21 01/02/25 omega-3 fatty acids-fish oil 340 1 cap PO DAILY 10/17/21 01/02/25 mg-1,000 mg capsule (Fish Oil) pantoprazole 40 mg tablet,delayed 40 mg PO BID #60 tabs 12/05/21 01/02/25 release calcium acetate 667 mg tablet 667 mg PO ONCE 06/04/24 01/02/25 empagliflozin 10 mg tablet 10 mg PO DAILY 06/04/24 01/02/25 (Jardiance) collagen,hydrolysate 500 mg-biotin 1 cap PO DAILY 11/12/24 01/02/25 800 mcg-ascorbic acid 50 mg capsule (Collagen 1500 Plus C) mupirocin 2 % topical ointment 1 applic topical BID PRN 01/02/25 01/02/25 Previous Rx's ?Medication ?Instructions ?Recorded pantoprazole 40 mg tablet,delayed 40 mg PO BID #60 tabs 12/05/21 release Allergies Allergy/AdvReac Type Severity Reaction Status Date / Time omeprazole (From Prilosec) Allergy Severe Swelling/Ed Verified 01/02/25 09:43 marielena soy Allergy Intermediate Skin Rash Verified 01/02/25 09:43 lansoprazole (From Prevacid) Allergy Mild Skin Rash Verified 01/02/25 09:43 weed pollen Allergy Mild Other (See Verified 01/02/25 09:43 Comment) tree and shrub pollen Allergy Other (See Verified 01/02/25 09:43 Comment) General KRISTIN: 3 Review of Systems All systems reviewed & are unremarkable except as noted in HPI and below Exam Narrative Exam Narrative: Vital signs: Reviewed. General Appearance: Alert and oriented. No acute distress. HEENT: EOMI. Minimal wax in right ear, more in left ear. No changes in hearing or ear pain. Minimal cerumen bilaterally, otherwise TM appears intact with no abnormality Neck: Supple, full range of motion, no observable masses, No meningeal sign. Respiratory: No Respiratory distress. No tachypnea. Cardiovascular: RRR, no edema. Gastrointestinal: Soft, nondistended, No rebound tenderness. Back: No midline tenderness to palpation or palpable step-offs of the C/T/L spine. Skin: Warm and dry, no rash. Neurological: Alert and oriented x3. No focal deficits. Coordination intact. Negative [place]. Normal ebnaun-oc-kohv and uaqk-cc-kfia tests. No nystagmus, cranial nerves II to XII intact grossly. Psychiatric: Appropriate for situation. Course Lab/Test Results Lab/Test Results: Laboratory Tests Range/Units 01/02/25 01/02/25 01/02/25 10:25 10:50 11:25 WBC (4.4-10.8) 10^3/uL 7.22 RBC (3.93-5.22) 10^6/uL 4.97 Hgb (11.2-15.7) g/dL 14.8 Hct (36.0-46.0) % 44.3 MCV (80-95) fL 89 MCH (27.0-33.0) pg 29.8 MCHC (32.0-36.0) % 33.4 RDW (11.7-14.6) % 12.7 Plt Count (130-400) 10^3/uL 265 MPV (8.0-11.0) fL 9.1 Immature Gran % % 0.4 Neutrophils % % 74.9 Lymphocytes % % 16.3 Monocytes % % 4.7 Eosinophils % % 3.0 Basophils % % 0.7 Nucleated RBC % (0.0-0.3) % 0.0 Absolute Neutrophils (1.2-6.7) 10^3/uL 5.40 Absolute Lymphocytes (1.2-3.4) 10^3/uL 1.18 L Absolute Monocytes (0.1-0.8) 10^3/uL 0.34 Absolute Eosinophils (0.0-0.7) 10^3/uL 0.22 Absolute Basophils (0.0-0.2) 10^3/uL 0.05 Sodium (136-145) mmol/L 139 Potassium (3.5-5.1) mmol/L 4.4 Chloride (98-107) mmol/L 102 Carbon Dioxide (21.0-32.0) mmol/L 29.2 Anion Gap (3-11) mmol/L 7.8 BUN (7-18) mg/dL 21 H Creatinine (0.55-1.02) mg/dL 0.5 L Est GFR (CKD-EPI 2020) (mL/min/1.73m2) 97.14 Glucose (74-106) mg/dL 167 H Calcium (8.5-10.1) mg/dL 8.8 Magnesium (1.8-2.4) mg/dL 2.3 Total Bilirubin (0.2-1.0) mg/dL 0.5 AST (15-37) U/L 30 ALT (14-59) U/L 41 Alkaline Phosphatase (46-116) U/L 94 Troponin I (<or=51) ng/L 5 4 Total Protein (6.4-8.2) g/dL 7.3 Albumin (3.4-5.0) g/dL 3.8 Urine Color (Yellow) Yellow Urine Clarity (Clear) Clear Urine pH (5-8) 7.5 Ur Specific [place] (1.005-1.025) 1.015 Urine Protein (Neg-Trace) mg/dL Negative Urine Ketones (Negative) mg/dL Negative Urine Blood (Negative) Negative Urine Nitrite (Negative) Negative Urine Bilirubin (Negative) Negative Urine Urobilinogen (Up to 0.2) mg/dL 0.2 Ur Leukocyte Esterase (Negative) Negative Urine RBC (0-2) HPF 0-2 Urine WBC (0-5) HPF 0-2 Ur Epithelial Cells (Negative) HPF Rare Urine Crystals (Negative) HPF Negative Urine Bacteria (Negative) HPF Negative Urine Casts (Negative) LPF Negative Urine Mucus (Negative) Negative Ur Culture Indicated? No Urine Glucose (Negative) mg/dL >=1000 H Medical Decision Making 74-year-old female presents as above. Vital signs normal limits outside of hypertension, of note patient endorses a long history of whitecoat hypertension. Patient presentation is concerning for possible central cause of dizziness, given insidious onset, persistent symptoms, minimal effect with movement. As such we will obtain screening labs, imaging including CTA head and neck, determine disposition. Results reviewed. CTA shows no evidence of CVA, or flow-limiting stenosis of the vertebral arteries to explain the patient's symptoms. Remainder of workup is reassuring to include troponin, EKG, chest x-ray, metabolic panel and CBC. On reassessment, patient notes significant proved in her symptoms and is no longer dizzy. Given the chronicity of the patient's symptoms I think a central cause of her dizziness is highly unlikely at this time, and she is in agreement with plan for discharge and follow-up with her primary care and ENT referral. Imaging Data Radiologic Study: Radiologist's impression: PROCEDURE INFORMATION: Exam: CTA Head Without And With Contrast, Arteriography Exam date and time: 01/02/2025 11:41 AM Age: 74 years old Clinical indication: Other: Dizzines. [place]ner[place] for post. Circ TECHNIQUE: Imaging protocol: Computed tomographic angiography of the head without and with contrast. Exam focused on the arteries. 3D rendering (Not supervised by radiologist): MIP and/or 3D reconstructed images were created by the technologist. Contrast material: OMNIPAQUE 350; Contrast volume: 70 ml; Contrast route: INTRAVENOUS (IV); COMPARISON: No relevant prior studies available. FINDINGS: ANTERIOR CIRCULATION: Right internal carotid artery: Intracranial segment is patent with no significant stenosis or occlusion. No aneurysm. Right middle cerebral artery: No occlusion or significant stenosis. No aneurysm. Right anterior cerebral artery: No occlusion or significant stenosis. No aneurysm. Left internal carotid artery: Intracranial segment is patent with no significant stenosis. No aneurysm. Left middle cerebral artery: No occlusion or significant stenosis. No aneurysm. Left anterior cerebral artery: No occlusion or significant stenosis. No aneurysm. POSTERIOR CIRCULATION: Right vertebral artery: No occlusion or significant stenosis. No aneurysm. [facility] [place] Preliminary Radiology Report Page 2 of 3 Left vertebral artery: No occlusion or significant stenosis. No aneurysm. Basilar artery: No occlusion or significant stenosis. No aneurysm. Right posterior cerebral artery: No occlusion or significant stenosis. No aneurysm. Left posterior cerebral artery: No occlusion or significant stenosis. No aneurysm. HEAD: Brain: Normal. No hemorrhage. Unremarkable white matter. No mass effect. Cerebral ventricles: Normal. No ventriculomegaly. Bones: Unremarkable. No acute fracture. Paranasal sinuses: Polypoid tissue in the left maxillary and right sphenoid sinuses No fluid levels. Mastoid air cells: Visualized mastoids are normal. No mastoid effusion. Soft tissues: Unremarkable. IMPRESSION: 1. No large vessel occlusion. 2. No acute intracranial findings Radiologic Study #2: My impression: No acute findings Radiologist's impression: PROCEDURE INFORMATION: Exam: XR Chest Exam date and time: 01/02/2025 11:52 AM Age: 74 years old Clinical indication: Other: Dizziness TECHNIQUE: Imaging protocol: Radiologic exam of the chest. Views: 1 view. COMPARISON: CT BRAIN NECK CTA 01/02/2025 11:41 AM FINDINGS: Lungs: Unremarkable. No consolidation. Pleural spaces: Unremarkable. No pleural effusion. No pneumothorax. Heart/Mediastinum: Unremarkable. No cardiomegaly. Bones/joints: Unremarkable. IMPRESSION: No acute findings. Thank you for allowing us to participate in the care of your patient. Dictated and Authenticated by: Surya Marcus MD 01/02/2025 12:24 PM Eastern Time ([place] & [place]) ECG Data Interpretation: Rhythm: Sinus bradycardia Rate: 57 bpm [place]: Normal axis Intervals: Normal intervals Other findings: No acute ST segment or T wave changes to suggest acute ischemia. PFSH All Active Problems (Updated 01/02/25 @ 12:56 by Balta Rowe MD) Dizziness (Acute) Cortical age-related cataract, right eye (Acute) Nuclear age-related cataract, right eye (Acute) Lichen sclerosus (Acute) Abnormal skin growth (Acute) Screening for malignant neoplasm of skin (Acute) Neck pain (Acute) Changing skin lesion (Acute) Abdominal pain, acute (Acute) GERD (gastroesophageal reflux disease) (Chronic) Medical History H/O mammogram 04/02/2023 Ganglion cyst Scleroderma Eczema Atopic dermatitis Hypercholesterolemia Hypothyroid Diabetes type 2, controlled diet controlled per pt. [place] Surgical History H/O colonoscopy 10/23/2004 H/O esophagogastroduodenoscopy (~11/06/21) Family History Mother Hypertension Hypercholesterolemia Father Diabetes Brother Diabetes Paternal Uncle Heart disease Social History Smoking/Tobacco Use Status: Never Smoking risk assessment performed?: Yes Alcohol Intake: never Drug use: Never Substance use type: does not use Housing: house Do you feel safe at home: Yes Do you feel safe in your relationship?: Yes
--- NOTE | 2025-01-02 10:15 | DI.CT_ITS ---
Exam(s) CT BRAIN NECK CTA EXAM: CT BRAIN NECK CTA CLINICAL HISTORY: dizzines. cocnern for post. circ.. TECHNIQUE: Imaging Protocol: Axial CT angiography was performed with multi- slice acquisition and multi-planar and MIP reconstructions. CONTRAST MATERIAL: Intravenous: Omnipaque 350 Contrast volume:70 ml COMPARISON: CR,XR XR CHEST 1V IN DI DEPT from 01/02/2025 FINDINGS: CT Head W/O and W contrast: Ventricles and Extra axial spaces: The ventricles are normal in size and morphology for the patient's age. Hemorrhage: None. Cerebral parenchyma: No evidence of acute infarct or mass. Midline shift: None. Brainstem/Cerebellum: No acute findings.. Calvarium: Small bony projection from the inner table of the left frontal skull versus calcified meningioma. No suspicious features. Of doubtful clinical significance. Visualized Paranasal sinuses/Mastoids: Mucous retention cyst versus polyp in the right sphenoid sinus and left maxillary sinus. Soft Tissues: Unremarkable. Enhancement: Normal. Venous sinuses are patent. CTA Brain W: Internal Carotid Arteries: Right: No aneurysm, occlusion or significant stenosis. Left: No aneurysm, occlusion or significant stenosis. Middle Cerebral Arteries: Right: No aneurysm, occlusion or significant stenosis. Left: No aneurysm, occlusion or significant stenosis. Anterior Cerebral Arteries: Right: No aneurysm, occlusion or significant stenosis. Left: No aneurysm, occlusion or significant stenosis. Posterior cerebral Arteries: Right: No aneurysm, occlusion or significant stenosis. Left: No aneurysm, occlusion or significant stenosis. Vertebral Arteries: Right: No aneurysm, occlusion or significant stenosis. Left: No aneurysm, occlusion or significant stenosis. Basilar Artery: No aneurysm, occlusion or significant stenosis. CTA Neck W: Common Carotid: No significant atherosclerotic changes. Right: No dissection, occlusion or significant stenosis. Left: No dissection, occlusion or significant stenosis. External Carotid: Right: No dissection, occlusion or significant stenosis. Left: No dissection, occlusion or significant stenosis. Internal Carotid: No significant atherosclerotic changes. Right: No dissection, occlusion or significant stenosis. Left: No dissection, occlusion or significant stenosis. Vertebral Artery: Vessel diameters are normal. Right: No dissection, occlusion or significant stenosis. Left: No dissection, occlusion or significant stenosis. Lung Apices: There are multiple patchy densities in the right upper lobe should be infectious or inflammatory. Chest CT recommended for further evaluation on a nonemergent basis. Bones: No acute abnormality. Soft Tissues: Normal. IMPRESSION: 1. CTA brain: Normal CTA examination of the [place]. 2. Head CT: No acute abnormality. 3. CTA neck: No evidence of occlusion, significant stenosis or dissection. No significant atherosclerotic changes. 4. Right upper lobe opacities. Consider chest CT for further evaluation. The preliminary [facility] report was reviewed. RADIATION DOSE DELIVERED: Total DLP DATA REPOSITORY: All CT scans at this facility are submitted to the National Radiology Data Registry (NRDR) Dose Index Registry (DIR) with the [employer] (ACR). RADIATION OPTIMIZATION: All CT scans at this facility use at least one of these dose optimization techniques: automated exposure control; mA and/or kV adjustment per patient size (includes targeted exams where dose is matched to clinical indication); or iterative reconstruction.
[2025-01-02 10:33] LABS: Abs Immature Grans 0.03 10^3/uL (0.0-0.06); HCT 44.3 % (36.0-46.0); HGB 14.8 g/dL (11.2-15.7); Immature Grans % 0.4 %; MCH 29.8 pg (27.0-33.0); MCHC 33.4 % (32.0-36.0); MCV 89 fL (80-95); MPV 9.1 fL (8.0-11.0); Platelet Count 265 10^3/uL (130-400); RBC 4.97 10^6/uL (3.93-5.22); RDW 12.7 % (11.7-14.6); RDW-SD 41.6 fL; WBC 7.22 10^3/uL (4.4-10.8)
--- NOTE | 2025-01-02 10:46 | DI.RAD_ITS ---
Exam(s) XR CHEST 1V IN DI DEPT EXAM: XR CHEST 1V IN DI DEPT CLINICAL HISTORY: dizziness TECHNIQUE: 2D digital imaging was performed. COMPARISON: No exams were available for comparison FINDINGS: LUNGS: Clear. No pleural abnormality seen. HEART: Normal size. AORTA: Normal diameter. BONES: Unremarkable for age. Soft tissues: Unremarkable. IMPRESSION: No acute findings. The preliminary [facility] report was reviewed. DATA REPOSITORY: RADIATION DOSE DELIVERED:
[2025-01-02 10:51] LABS: ALT 41 U/L (14-59); AST 30 U/L (15-37); Albumin 3.8 g/dL (3.4-5.0); Alkaline Phosphatase 94 U/L (46-116); Anion Gap 7.8 mmol/L (3-11); BUN 21 mg/dL (7-18); Bilirubin, Total 0.5 mg/dL (0.2-1.0); CO2 29.2 mmol/L (21.0-32.0); Calcium 8.8 mg/dL (8.5-10.1); Chloride 102 mmol/L (98-107); Estimated GFR 97.14 (mL/min/1.73m2); Glucose 167 mg/dL (74-106); Magnesium 2.3 mg/dL (1.8-2.4); Potassium 4.4 mmol/L (3.5-5.1); Sodium 139 mmol/L (136-145); Total Protein 7.3 g/dL (6.4-8.2); Troponin I 5 ng/L (<or=51)
[2025-01-02 10:59] LABS: Glucose >=1000 mg/dL (Negative)
[2025-01-02 11:07] LABS: C & S Indicated? No; RBC 0-2 HPF (0-2); WBC 0-2 HPF (0-5)
[2025-01-02] MEDS: Omnipaque 350 MG/ML 100 ML BTL IJ (11:40)
[2025-01-02] MEDS: Normal Saline - Diluent 50 ML VIAL IJ (11:40)
[2025-01-02] MEDS: Normal Saline Flush 10 ML SYR IVP (11:41)
[2025-01-02 11:51] LABS: Troponin I 4 ng/L (<or=51)
--- NOTE | 2025-01-02 12:25 | DI.[facility]_ITS ---
PROCEDURE INFORMATION: Exam: XR Chest Exam date and time: 01/02/2025 11:52 AM Age: 74 years old Clinical indication: Other: Dizziness TECHNIQUE: Imaging protocol: Radiologic exam of the chest. Views: 1 view. COMPARISON: CT BRAIN NECK CTA 01/02/2025 11:41 AM FINDINGS: Lungs: Unremarkable. No consolidation. Pleural spaces: Unremarkable. No pleural effusion. No pneumothorax. Heart/Mediastinum: Unremarkable. No cardiomegaly. Bones/joints: Unremarkable. IMPRESSION: No acute findings. Dictated and Authenticated by: Surya Marcus MD. Orderin Jae Gifford MD
--- NOTE | 2025-01-02 12:27 | DI.[facility]_ITS ---
PROCEDURE INFORMATION: Exam: CTA Head Without And With Contrast, Arteriography Exam date and time: 01/02/2025 11:41 AM Age: 74 years old Clinical indication: Other: Dizzines. Cocnern for post. Circ TECHNIQUE: Imaging protocol: Computed tomographic angiography of the head without and with contrast. Exam focused on the arteries. 3D rendering (Not supervised by radiologist): MIP and/or 3D reconstructed images were created by the technologist. Contrast material: OMNIPAQUE 350; Contrast volume: 70 ml; Contrast route: INTRAVENOUS (IV); COMPARISON: No relevant prior studies available. FINDINGS: ANTERIOR CIRCULATION: Right internal carotid artery: Intracranial segment is patent with no significant stenosis or occlusion. No aneurysm. Right middle cerebral artery: No occlusion or significant stenosis. No aneurysm. Right anterior cerebral artery: No occlusion or significant stenosis. No aneurysm. Left internal carotid artery: Intracranial segment is patent with no significant stenosis. No aneurysm. Left middle cerebral artery: No occlusion or significant stenosis. No aneurysm. Left anterior cerebral artery: No occlusion or significant stenosis. No aneurysm. POSTERIOR CIRCULATION: Right vertebral artery: No occlusion or significant stenosis. No aneurysm. Left vertebral artery: No occlusion or significant stenosis. No aneurysm. Basilar artery: No occlusion or significant stenosis. No aneurysm. Right posterior cerebral artery: No occlusion or significant stenosis. No aneurysm. Left posterior cerebral artery: No occlusion or significant stenosis. No aneurysm. HEAD: Brain: Normal. No hemorrhage. Unremarkable white matter. No mass effect. Cerebral ventricles: Normal. No ventriculomegaly. Bones: Unremarkable. No acute fracture. Paranasal sinuses: Polypoid tissue in the left maxillary and right sphenoid sinuses No fluid levels. Mastoid air cells: Visualized mastoids are normal. No mastoid effusion. Soft tissues: Unremarkable. IMPRESSION: 1. No large vessel occlusion. 2. No acute intracranial findings PROCEDURE INFORMATION: Exam: CTA Neck Without And With Contrast Exam date and time: 01/02/2025 11:41 AM Age: 74 years old Clinical indication: Other: Dizzines. Cocnern for post. Circ TECHNIQUE: Imaging protocol: Computed tomographic angiography of the neck without and with contrast. Exam focused on the cervical segments of the vasculature. 3D rendering (Not supervised by radiologist): MIP and/or 3D reconstructed images were created by the technologist. Contrast material: OMNIPAQUE 350; Contrast volume: 70 ml; Contrast route: INTRAVENOUS (IV); COMPARISON: No relevant prior studies available. FINDINGS: Right common carotid artery: No stenosis. No dissection or occlusion. Right internal carotid artery: No stenosis of the extracranial segment. No dissection or occlusion. Right external carotid artery: No occlusion or stenosis of the origin. Left common carotid artery: No stenosis. No dissection or occlusion. Left internal carotid artery: No stenosis of the extracranial segment. No dissection or occlusion. Left external carotid artery: No occlusion or stenosis of the origin. Right vertebral artery: No stenosis. No dissection or occlusion. Left vertebral artery: No stenosis. No dissection or occlusion. Soft tissues: Normal. No significant soft tissue swelling. Bones/joints: No acute fracture. Mild nodular opacities right upper lobe IMPRESSION: No stenosis or occlusion. Right upper lobe opacities presumed infectious/inflammatory. Consider chest CT for further evaluation REFERENCES: NASCET CRITERIA. The degree of stenosis in the cervical segment of the internal carotid artery is based on NASCET criteria. Normal is no stenosis. Mild is less than 50% stenosis. Moderate is 50-69% stenosis. Severe is 70% to 99% stenosis. Total occlusion is no detectable patent lumen. Dictated and Authenticated by: Surya Marcus MD. Orderin Jae Gifford MD
== END 2025-01-02 13:25 | disposition home or self-care (01) ==
PROVIDERS: Emergency Provider General Practice; PCP Nurse Practitioner Family
DX: R42 Dizziness and giddiness (principal)
CPT/HCPCS: 99285; 99283; 36415; 70496; 70498; 80053; 93005; 71045; 81003; 81015; 83735; 84484; 85025; 93010; J3490